=== PATIENT | male | born 1940 | race African-American/Black ===

== ENCOUNTER 2016-10-18 16:48 | Inpatient (IN) | payer MEDICARE, OTHER ==
[2016-10-18] VITALS (10 sets, daily range): BP systolic 170–236; BP diastolic 96–116; PULSE 68–90; RESP 16–24; TEMP 98.1–98.4; O2SAT 94–100
[~2016-10-18] VITALS: Ht 185.4 cm; Wt 85.2 kg
[2016-10-18] MEDS ORDERED: SODIUM CHLOR 0.9% 1000 ML INJ 1,000 ML IV ONE (16:53)
[2016-10-18] MEDS ORDERED: ASPIRIN 81 MG CHEW TAB PO STA (16:53)
[2016-10-18] MEDS ORDERED: NITROGLYCERIN 0.4 MG SL 25 TABS/BTL SL STA (16:53)
[2016-10-18] MEDS ORDERED: HEPARIN SODIUM - IV 10,000 UNITS/10 ML VIAL IV STA (16:53)
[2016-10-18] MEDS ORDERED: IOHEXOL 350 MG/ML 100 ML BTL (for Cath Lab) OTHER ONE (17:00)
[2016-10-18] MEDS ORDERED: SODIUM CHLORIDE 0.9% FLUSH 5 ML FLUSH IVF PRN (17:00)
[2016-10-18] MEDS ORDERED: NITROGLYCERIN-DEXTROSE INJ 250 ML IV SCH (17:00)
--- NOTE | 2016-10-18 17:08 | PD ---
HPI Chief Complaint: Chest Pain Time Seen by Provider: 16:53 Travel History International Travel<30 days: No Contact w/Intl Traveler<30days: No Traveled to known affect area: No History of Present Illness HPI Patient is a pleasant 76-year-old male who presents the emergency department with complaint of chest pain. Patient states that he was trying to get his continuing education credit than before the end of the calendar year. He is on the computer and stressing. Approximately 3 PM he developed substernal chest pain. Describes this as though somebody is squeezing his heart. 4 out of 10 at this time. It radiates slightly into the shoulders bilaterally but nothing into the neck or back. No chest pain, palpitations. He took aspirin prior to EMS arrival. Was given nitroglycerin 1 per EMS without improvement. EMS noted significant ST depression throughout the precordial leads. Patient hemodynamically stable en route. He denies a history of hypertension, known coronary artery disease and does not have an established investment fund manager. Of note patient's states that his 3 years ago and if this is "my day to than let me go". Patient is consistent that he wants to be a DNR. No defibrillations, CPR, intubation. PFSH Past Medical History Medical History: Denies Significant Hx Hypertension: Yes Influenza Vaccination: No Past Surgical History Appendectomy: Yes Social History Alcohol Use: Yes (OCCAS.) Tobacco Use: No Substance Use: No Allergies-Medications (Allergen,Severity, Reaction): Coded Allergies: No Known Allergies (Unverified , 10/18/16) Reported Meds & Prescriptions Reported Meds & Active Scripts Active No Active Prescriptions or Reported Medications Review of Systems ROS Limitations: Clinical Condition Except as stated in HPI: all other systems reviewed are Neg Physical Exam Exam Limitations: Clinical Condition Narrative GENERAL: Well-appearing male in no acute distress SKIN: Warm and dry. HEAD: Normocephalic. EYES: No scleral icterus. No injection or drainage. ENT: Mucous membranes pink and moist. NECK: Supple CARDIOVASCULAR: Regular rate and rhythm. No murmur appreciated. No reproducible tenderness to palpation of the chest wall. RESPIRATORY: No accessory muscle use. Clear to auscultation. Breath sounds equal bilaterally. GASTROINTESTINAL: Abdomen soft, non-tender, nondistended. MUSCULOSKELETAL: No edema. NEUROLOGICAL: Awake and alert. Normal speech. PSYCHIATRIC: Appropriate mood and affect; insight and judgment normal. Data Data Last Documented VS Vital Signs Date Time Temp Pulse Resp B/P Pulse Ox O2 Delivery O2 Flow Rate FiO2 10/18/16 17:00 100 Room Air 10/18/16 17:00 2 10/18/16 16:50 72 24 236/116 Orders Troponin I (10/18/16 16:53) Ckmb (Isoenzyme) Profile (10/18/16 16:53) Complete Blood Count With Diff (10/18/16 16:53) I-Stat Profile (10/18/16 16:53) I-Stat Creatinine (10/18/16 16:53) Calcium (10/18/16 16:53) Magnesium (Mg) (10/18/16 16:53) Prothrombin Time / Inr (Pt) (10/18/16 16:53) Act Partial Throm Time (Ptt) (10/18/16 16:53) B-Type Natriuretic Peptide (10/18/16 16:53) Chest, Single Ap (10/18/16 16:53) Electrocardiogram (10/18/16 16:53) Oxygen Administration (10/18/16 16:53) Iv Access Insert/Monitor (10/18/16 16:53) Oximetry (10/18/16 16:53) Sodium Chlor 0.9% 1000 Ml Inj (Ns 1000 M (10/18/16 16:53) Sodium Chloride 0.9% Flush (Ns Flush) (10/18/16 17:00) Aspirin Chew (Aspirin Chew) (10/18/16 16:53) Nitroglycerin Sl (Nitrostat Sl) (10/18/16 16:53) Nitroglycerin-Dextrose Inj (Nitroglyceri (10/18/16 17:00) Heparin Inj (Heparin Inj) (10/18/16 16:53) Electrocardiogram (10/18/16 ) Admit Order (Ed Use Only) (10/18/16 16:59) Code Status (10/18/16 16:59) MDM Medical Decision Making Medical Screen Exam Complete: Yes Emergency Medical Condition: Yes Medical Record Reviewed: Yes Differential Diagnosis 76-year-old male here with approximately 2 hours of squeezing pain to the chest. Differential includes ACS, atypical chest pain, GERD, musculoskeletal and less likely PE or dissection. Narrative Course Patient placed on monitor, IV established and blood obtained. A twelve-lead EKG shows sinus rhythm. Patient has ST elevation in aVR with reciprocal ST depression in V1, V2, V3, and slightly in V4. Highly suspicious for posterior STEMI. STEMI alert was activated. Portable chest x-ray obtained that by my read is unremarkable. Patient given heparin bolus, nitroglycerin, nitroglycerin drip. I spoke with Dr. espinoza of cardiology who accepted patient to the [facility]. At this time patient is ready for [facility]. Laboratory evaluation remains pending at the time of this dictation. Critical Care Narrative Aggregate critical care time was 35 minutes. Time to perform other separately billable procedures was not included in the critical care time. My time did not include minutes spent treating any other patients simultaneously or on activities that did not directly contribute to the patient's treatment. The services I provided to this patient were to treat and/or prevent clinically significant deterioration that could result in: cardio pulmonary decompensation , , disability I provided critical care services requiring my management, as noted below: Chart data review, documentation time, medication orders and management, vital sign assessments/reviewing monitor data, ordering and reviewing lab tests, ordering and interpreting/reviewing x-rays and diagnostic studies, care of the patient and discussion of the patient with the admitting physicians. Diagnosis Primary Impression: ST elevation DE (STEMI) Qualified Code: I21.3 - ST elevation myocardial infarction (STEMI), unspecified artery Additional Impression: Chest pain Qualified Code: R07.2 - Precordial pain Admitting Information Admitting Physician Requests: Admit Scripts No Active Prescriptions or Reported Meds Viktoriya Edge MD Oct 18, 2016 17:08
--- NOTE | 2016-10-18 17:12 | RADRPT ---
EXAM DATE/TIME: 10/18/2016 17:01 [facility] COMPARISON: No previous studies available for comparison. INDICATIONS : Stemi alert MEDICAL HISTORY : None. SURGICAL HISTORY : None. ENCOUNTER: Initial ACUITY: 1 day PAIN SCORE: 10/10 LOCATION: Left chest FINDINGS: There is mild left base atelectasis. Right lung appears clear. No pleural effusion or pneumothorax se en. Heart size within normal limits. CONCLUSION: Mild left base atelectasis. No other acute cardiopulmonary disease demonstrated. Candelario Dixon MD on October 18, 2016 at 17:10 Board Certified Radiologist. This report was verified electronically.
[2016-10-18 17:15] LABS: I-STAT POTASSIUM 8.4 MMOL/L (3.5-4.9); I-STAT SODIUM 136 MMOL/L (138-146)
[2016-10-18 17:17] LABS: AUTOMATED NEUTROPHIL # 6.2 TH/MM3 (1.8-7.7); BASOPHIL % 0.4 % (0.0-2.0); EOSINOPHIL # 0.1 TH/MM3 (0-0.4); EOSINOPHIL % 0.8 % (0.0-4.0); HEMATOCRIT 45.1 % (39.0-51.0); HEMO FLAGS DIFF FINAL; LYMPH % 21.7 % (9.0-44.0); LYMPHOCYTE # 1.9 TH/MM3 (1.0-4.8); MEAN CELL VOLUME 84.5 FL (80.0-100.0); MEAN CORPUSCULAR HEMOGLOBIN 27.2 PG (27.0-34.0); MEAN CORPUSCULAR HGB CONC 32.2 % (32.0-36.0); MONO % 6.7 % (0.0-8.0); NEUT % 70.4 % (16.0-70.0); PLATELET COUNT 216 TH/MM3 (150-450); RED BLOOD COUNT 5.33 MIL/MM3 (4.50-5.90); RED CELL DISTRIBUTION WIDTH 14.9 % (11.6-17.2); WHITE BLOOD COUNT 8.8 TH/MM3 (4.0-11.0)
[2016-10-18] MEDS ORDERED: MIDAZOLAM HCL 2 MG/2 ML VIAL ONE (17:20)
[2016-10-18] MEDS ORDERED: HEPARIN SODIUM - IV 10,000 UNITS/10 ML VIAL ONE (17:26)
[2016-10-18 17:27] LABS: APTT (PATIENT) 24.2 SEC (24.3-30.1); PROTHROMBIN TIME - PATIENT 10.7 SEC (9.8-11.6)
[2016-10-18 17:39] LABS: MAGNESIUM 2.1 MG/DL (1.5-2.5)
[2016-10-18 17:40] LABS: CREATINE KINASE 224 U/L (39-308)
[2016-10-18 17:56] LABS: CKMB 10.3 NG/ML (0.5-3.6)
[2016-10-18] MEDS ORDERED: cloNIDine HCL 0.1 MG TAB PO PRN (18:00)
[2016-10-18] MEDS ORDERED: LABETALOL HCL 100 MG/20 ML VIAL IVP PRN (18:00)
[2016-10-18] MEDS ORDERED: hydrALAZINE HCL 20 MG/ML VIAL IV PUSH PRN (18:00)
[2016-10-18] MEDS ORDERED: HEPARIN-D5W INJ 250 ML IV SCH (18:00)
[2016-10-18] MEDS ORDERED: ENALAPRILAT 1.25 MG/ML VIAL IV PRN (18:00)
[2016-10-18] MEDS ORDERED: BACITRACIN OINT 0.9 GM PKT TOP ONE (18:00)
[2016-10-18] MEDS ORDERED: oxyCODONE/ACETAMINOPHEN 5 MG/325 MG TAB PO PRN ×2 (18:00)
[2016-10-18] MEDS ORDERED: NITROPRUSSIDE INJ 50 MG in DEXTROSE 5% IN WATER INJ 248 ML IV SCH ×2 (18:00)
[2016-10-18] MEDS ORDERED: MISC INFORMATION XX ONE (18:00)
[2016-10-18] MEDS ORDERED: ONDANSETRON HCL 4 MG/2 ML VIAL IVP PRN (18:00)
--- NOTE | 2016-10-18 18:32 | MB ---
cc: RADHA TUBBS DATE OF CONSULTATION 10/18/[address]-elevation myocardial infarction. HISTORY OF PRESENT ILLNESS A 76-year-old gentleman with history of hypertension and borderline diabetes who presented to the emergency department with acute onset of substernal chest pain. He said today he was at his computer when he started developing substernal tightness. It radiated towards both shoulders and his back, came into the emergency department where he has some lateral ST elevation with some posterior and reciprocal changes, ST depression anteriorly. ST-elevation myocardial infarction protocol was initiated. PAST MEDICAL HISTORY Hypertension, borderline diabetes. SOCIAL HISTORY Occasional alcohol use. Denies any tobacco or drug use. ALLERGIES No known drug allergies. MEDICATIONS No active medications. REVIEW OF SYSTEMS 12-point review of system was performed and negative unless otherwise noted in the history of present illness. PHYSICAL EXAMINATION VITAL SIGNS: Pulse 72, respiratory rate 24, blood pressure 236/116 at presentation. GENERAL: Alert and oriented x3, mild distress. HEENT: Exam shows pupils are reactive to light and accommodation. Extraocular movements are intact. No elevation in jugular venous distension. No thyromegaly or lymphadenopathy. No carotid bruits. LUNGS: Clear to auscultation bilaterally. CARDIOVASCULAR: Regular rate and rhythm without murmurs, rubs or gallops. ABDOMEN: Nontender, nondistended. Good bowel sounds. No hepatosplenomegaly. EXTREMITIES: No clubbing, cyanosis or edema. Good peripheral pulses. NEURO: Cranial nerves intact. Motor, sensory grossly intact. LABORATORY DATA WBC 8.8, hemoglobin 14.5, platelet count 216, sodium 136, potassium 8.4 but I think it is hemolyzed. Troponin 0.98, BUN is 18, creatinine is 1.1. ASSESSMENT 1. ST-elevation myocardial infarction. 2. Hypertension. 3. Borderline diabetes. PLAN Given the patient's substernal chest pain and electrocardiographic changes he will be brought emergently to the cardiac catheterization lab for attempted revascularization. The risks, benefits and alternatives discussed with the patient. He understood and consented to proceed. MD RENU Rivera/ABDIRAHMAN /5:59 PM /6:22 PM
--- NOTE | 2016-10-18 18:42 | MA ---
cc: RADHA TUBBS DATE 10/18/[address]-elevation myocardial infarction. PROCEDURE PERFORMED 1. Fluoroscopy with interpretation. 2. Left heart catheterization. 3. Left ventriculography. 4. Coronary angiography. METHOD The risks, benefits and alternatives discussed with the patient. The patient understood and consented to the procedure. PROCEDURE IN DETAIL The patient was brought to the cardiac catheterization lab, placed on the catheterization table. The right wrist was prepped and draped in sterile fashion. Right wrist was anesthetized with 2% lidocaine. Right radial artery is cannulated and a 6-Belgian 7 cm sheath was placed without difficulty. 200 micrograms of IA nitroglycerin was administered. CORONARY ANGIOGRAPHY Left coronary circulation was selectively engaged with a 6-Belgian AL-3 guide catheter. Right coronary circulation selectively engaged with 6-Belgian JR-5 catheter. Angiography findings as follows: 1. Left main coronary is angiographically normal. 2. Left anterior descending coronary has mild disease through its entire prox, course in the distal segment about 75% stenosis. There is a high diagonal branch which is a moderate size caliber vessel but otherwise fills very late and is subtotally occluded 99%. 3. Left circumflex gives rise to a large ramus intermedius branch and subbranch has a 95% stenosis. The circumflex is a dominant vessel giving rise to a left-sided posterior descending branch. There is an obtuse marginal branch which leads to the posterior descending branch and through the old mid segment of the circumflex there is a 90% stenosis. The right coronary is a smaller caliber size, gives the posterolateral branch 90% stenosis. LEFT HEART CATHETERIZATION 6-Belgian angled pigtail catheter was advanced across the valve without difficulty. Intracardiac pressure measured 160/15 mmHg. LEFT VENTRICULOGRAPHY Left ventriculography was performed right anterior oblique using a 30 cc contrast injection, good opacification. The left ventricular ejection fraction visually estimated at 65% without regional wall motion abnormalities. CONCLUSION 1. Multivessel coronary artery disease. The culprit lesion appears to be a diagonal branch but it is subtotally occluded and not easily approachable percutaneously. 2. Normal left ventricular systolic function. PLAN Given the multivessel disease we will consult cardiothoracic surgery. His symptoms are improving on the nitroglycerin, will continue with heparin. His diagonal branch is likely the culprit which is not easily approachable percutaneously. MD MART Rivera /6:06 PM /6:31 PM [facility] DIVISIONBranden
[2016-10-18 19:08] LABS: MEAN CELL VOLUME 84.4 FL (80.0-100.0); MEAN CORPUSCULAR HEMOGLOBIN 27.9 PG (27.0-34.0); MEAN CORPUSCULAR HGB CONC 33.1 % (32.0-36.0); PLATELET COUNT 213 TH/MM3 (150-450); RED CELL DISTRIBUTION WIDTH 14.9 % (11.6-17.2); REVIEW FLAG FINAL; WHITE BLOOD COUNT 10.2 TH/MM3 (4.0-11.0)
[2016-10-18 20:09] LABS: APTT (PATIENT) 110.8 SEC (24.3-30.1)
[2016-10-18 23:18] LABS: APTT (PATIENT) 31.6 SEC (24.3-30.1)
[2016-10-19] VITALS (25 sets, daily range): BP systolic 121–172; BP diastolic 68–101; PULSE 56–93; RESP 16; TEMP 98.1–98.6; O2SAT 94–99
[2016-10-19 07:58] LABS: AUTOMATED NEUTROPHIL # 6.3 TH/MM3 (1.8-7.7); BASOPHIL % 0.3 % (0.0-2.0); HEMATOCRIT 41.3 % (39.0-51.0); HEMO FLAGS DIFF FINAL; LYMPH % 12.5 % (9.0-44.0); MEAN CELL VOLUME 82.9 FL (80.0-100.0); MEAN CORPUSCULAR HEMOGLOBIN 27.5 PG (27.0-34.0); MEAN CORPUSCULAR HGB CONC 33.1 % (32.0-36.0); NEUT % 82.2 % (16.0-70.0); PLATELET COUNT 237 TH/MM3 (150-450); RED BLOOD COUNT 4.98 MIL/MM3 (4.50-5.90); WHITE BLOOD COUNT 7.6 TH/MM3 (4.0-11.0)
[2016-10-19 08:05] LABS: APTT (PATIENT) 25.2 SEC (24.3-30.1)
[2016-10-19 08:47] LABS: BICARBONATE 24.9 MEQ/L (21.0-32.0); POTASSIUM 3.8 MEQ/L (3.5-5.1)
[2016-10-19] MEDS ORDERED: LISINOPRIL 10 MG TAB PO SCH (10:30)
--- NOTE | 2016-10-19 10:33 | PD.CARD.PN ---
Subjective Subjective Remarks symptoms improved no complaints Objective Medications Active Medications Aspirin (Ecotrin Ec) 81 mg DAILY PO; Start 10/19/16 at 10:30 Atorvastatin Calcium (Lipitor) 40 mg HS PO; Start 10/19/16 at 21:00 Bacitracin 0.9 gm 0.9 gm ONCE ONCE TOP Last administered on 10/18/16at 07:00; Admin Dose 0.9 GM; Start 10/18/16 at 18:00; Stop 10/18/16 at 18:01; Status DC Clonidine (Catapres) 0.2 mg Q6H PRN PO; Start 10/18/16 at 18:00 Enalaprilat (Vasotec Inj) 1.25 mg UNSCH PRN IV; Start 10/18/16 at 18:00; Stop 10/19/16 at 17:59 Fentanyl Citrate (fentaNYL INJ) 100 mcg STK-MED ONCE .ROUTE Last administered on 10/18/16at 17:25; Admin Dose 100 MCG; Start 10/18/16 at 17:20; Stop at 17:21; Status DC Heparin Sodium (Porcine) (Heparin Inj) 10,000 units STK-MED ONCE .ROUTE Last administered on 10/18/16at 17:27; Admin Dose 5,000 UNITS; Start 10/18/16 at 17: 26; Stop 10/18/16 at 17:27; Status DC Heparin Sodium/ Dextrose (Heparin-D5W Inj) 250 ml @ 0 mls/hr TITRATE IV; Start 10/18/16 at 18:00 Hydralazine HCl (Apresoline Inj) 10 mg Q30M PRN IV PUSH Last administered on at 20:24; Admin Dose 10 MG; Start 10/18/16 at 18:00 IV Flush 2 ml 2 ml UNSCH PRN IVF; Start 10/18/16 at 17:00 Labetalol HCl 2.5 mg 2.5 mg Q10M PRN IVP; Start 10/18/16 at 18:00; Stop at 17:59 Lisinopril (Prinivil) 10 mg DAILY PO; Start 10/19/16 at 10:30 Metoprolol Tartrate (Lopressor) 25 mg Q12HR PO; Start 10/19/16 at 10:30 Midazolam HCl (Versed Inj) 2 mg STK-MED ONCE .ROUTE Last administered on at 17:24; Admin Dose 2 MG; Start 10/18/16 at 17:20; Stop 10/18/16 at 17:21; Status DC Miscellaneous Information 1 ONCE ONCE XX; Start 10/18/16 at 18:00; Stop 10/18 at 18:01; Status UNV Nitroglycerin/ Dextrose (Nitroglycerin-Dextrose Inj) 250 ml @ 0 mls/hr TITRATE IV Last administered on 10/18/16at 17:10; Admin Dose 0 MLS/HR; Start 10/18/16 at 17:00 Ondansetron HCl (Zofran Inj) 4 mg Q6H PRN IVP; Start 10/18/16 at 18:00 Oxycodone/ Acetaminophen (Percocet 5-325 Mg) 1 tab Q4H PRN PO; Start at 18:00 Oxycodone/ Acetaminophen (Percocet 5-325 Mg) 2 tab Q4H PRN PO; Start at 18:00 Sodium Nitroprusside/ Dextrose (Nipride Inj/D5W Inj) 250 ml @ 0 mls/hr TITRATE IV; Start 10/18/16 at 18:00 Sodium Chloride (NS 1000 ml Inj) 1,000 ml @ 0 mls/hr Q0M ONCE IV Last administered on 10/18/16at 17:10; Admin Dose 0 MLS/HR; Start 10/18/16 at 16:53 ; Stop 10/18/16 at 16:56; Status DC Vital Signs / I&O Vital Signs Date Time Temp Pulse Resp B/P Pulse Ox O2 Delivery O2 Flow Rate FiO2 10/19/16 10:00 83 10/19/16 09:00 85 10/19/16 08:00 83 10/19/16 07:00 80 10/19/16 07:00 98.3 86 16 121/76 99 10/19/16 06:00 91 10/19/16 05:14 98.1 68 16 172/101 94 10/19/16 05:00 90 10/19/16 04:00 88 10/19/16 03:00 91 10/19/16 02:00 91 10/19/16 01:00 88 10/19/16 00:00 93 10/18/16 23:00 88 10/18/16 23:00 98.1 90 16 170/96 97 10/18/16 22:00 85 10/18/16 21:00 68 10/18/16 20:43 98.1 68 16 172/101 94 10/18/16 20:00 73 10/18/16 19:00 73 10/18/16 18:53 70 10/18/16 18:15 98.4 74 18 180/99 94 10/18/16 17:00 100 Room Air 10/18/16 17:00 100 Nasal Cannula 2 10/18/16 16:50 72 24 236/116 100 I/O 10/18/16 10/18/16 10/18/16 10/19/16 10/19/16 10/19/16 07:00 15:00 23:00 07:00 15:00 23:00 Intake Total 360 ml Output Total 500 ml Balance -140 ml Intake Oral 360 ml Output Urine Total 350 ml Emesis 150 ml Physical Exam GENERAL: SKIN: Warm and dry. HEAD: Normocephalic. EYES: No scleral icterus. No injection or drainage. NECK: Supple, trachea midline. No JVD or lymphadenopathy. CARDIOVASCULAR: Regular rate and rhythm without murmurs, gallops, or rubs. RESPIRATORY: Breath sounds equal bilaterally. No accessory muscle use. GASTROINTESTINAL: Abdomen soft, non-tender, nondistended. MUSCULOSKELETAL: No cyanosis, or edema. BACK: Nontender without obvious deformity. No CVA tenderness. Laboratory Laboratory Tests Test 10/18/16 10/18/16 10/18/16 10/18/16 16:25 17:05 19:00 22:39 White Blood Count 8.8 TH/MM3 10.2 TH/MM3 Red Blood Count 5.33 MIL/MM3 5.10 MIL/MM3 Hemoglobin 14.5 GM/DL 14.2 GM/DL Bedside Hemoglobin 15.3 G/DL Hematocrit 45.1 % 43.0 % Bedside Hematocrit 45.0 % Mean Corpuscular Volume 84.5 FL 84.4 FL Mean Corpuscular Hemoglobin 27.2 PG 27.9 PG Mean Corpuscular Hemoglobin 32.2 % 33.1 % Concent Red Cell Distribution Width 14.9 % 14.9 % Platelet Count 216 TH/MM3 213 TH/MM3 Mean Platelet Volume 7.1 FL 6.9 FL Neutrophils (%) (Auto) 70.4 % Lymphocytes (%) (Auto) 21.7 % Monocytes (%) (Auto) 6.7 % Eosinophils (%) (Auto) 0.8 % Basophils (%) (Auto) 0.4 % Neutrophils # (Auto) 6.2 TH/MM3 Lymphocytes # (Auto) 1.9 TH/MM3 Monocytes # (Auto) 0.6 TH/MM3 Eosinophils # (Auto) 0.1 TH/MM3 Basophils # (Auto) 0.0 TH/MM3 CBC Comment DIFF FINAL Differential Comment Prothrombin Time 10.7 SEC Prothromb Time International 1.0 RATIO Ratio Activated Partial 24.2 SEC 110.8 SEC 31.6 SEC Thromboplast Time Bedside Sodium 136 MMOL/L Bedside Potassium 8.4 MMOL/L Bedside Chloride 107 MMOL/L Bedside Blood Urea Nitrogen 18 MG/DL Bedside Creatinine 1.1 MG/DL Bedside Glucose 104 MG/DL Calcium Level 9.4 MG/DL Magnesium Level 2.1 MG/DL Total Creatine Kinase 224 U/L Creatine Kinase MB 10.3 NG/ML Troponin I 0.98 NG/ML B-Type Natriuretic Peptide 14 PG/ML Test 10/19/16 06:00 White Blood Count 7.6 TH/MM3 Red Blood Count 4.98 MIL/MM3 Hemoglobin 13.7 GM/DL Hematocrit 41.3 % Mean Corpuscular Volume 82.9 FL Mean Corpuscular Hemoglobin 27.5 PG Mean Corpuscular Hemoglobin 33.1 % Concent Red Cell Distribution Width 15.0 % Platelet Count 237 TH/MM3 Mean Platelet Volume 7.4 FL Neutrophils (%) (Auto) 82.2 % Lymphocytes (%) (Auto) 12.5 % Monocytes (%) (Auto) 5.0 % Eosinophils (%) (Auto) 0.0 % Basophils (%) (Auto) 0.3 % Neutrophils # (Auto) 6.3 TH/MM3 Lymphocytes # (Auto) 1.0 TH/MM3 Monocytes # (Auto) 0.4 TH/MM3 Eosinophils # (Auto) 0.0 TH/MM3 Basophils # (Auto) 0.0 TH/MM3 CBC Comment DIFF FINAL Differential Comment Activated Partial 25.2 SEC Thromboplast Time Sodium Level 140 MEQ/L Potassium Level 3.8 MEQ/L Chloride Level 103 MEQ/L Carbon Dioxide Level 24.9 MEQ/L Anion Gap 12 MEQ/L Blood Urea Nitrogen 11 MG/DL Creatinine 1.06 MG/DL Estimat Glomerular Filtration 83 ML/MIN Rate Random Glucose 140 MG/DL Calcium Level 9.4 MG/DL Imaging Last Impressions Chest X-Ray 10/18/16 2598 Signed Impressions: Service Date/Time: Tuesday, October 18, 2016 17:01 - CONCLUSION: Mild left base atelectasis. No other acute cardiopulmonary disease demonstrated. Candelario Dixon MD Assessment and Plan Assessment and Plan STEMI - multivessel CAD. Diagonal branch is culprit lesion. medical therapy. currently stable. refusing heparin. 2d echo pending CT surg consult pending Jaime Aggarwal MD Oct 19, 2016 10:33
[2016-10-19] MEDS: ASPIRIN EC 81 MG TABEC PO SCH (10:45)
[2016-10-19] MEDS: METOPROLOL TARTRATE 25 MG TAB PO SCH ×2 (10:45→21:00)
--- NOTE | 2016-10-19 11:58 | PD.CONS ---
History of Present Illness Service CT Surgery Consult Requested By Dr. Aggarwal Reason for Consult STEMI, multivessel CAD Primary Care Physician Diagnoses: (1) ST elevation SD (STEMI) (2) Chest pain (3) CAD (coronary artery disease) History of Present Illness 76 y/o male presented to the ED yesterday c/o substernal chest tightness radiating to both arms and back. He ruled-in for STEMI and was emergently taken to the boat laborer where he was found to have severe 3 vessel CAD. He denies prior history and is being considered for CABG. Review of Systems Constitutional: DENIES: Diaphoretic episodes, Fatigue, Fever, Weight gain, Weight loss, Chills, Dizziness, Change in appetite, Night Sweats Endocrine: DENIES: Heat/cold intolerance, Polydipsia, Polyuria, Polyphagia Eyes: DENIES: Blurred vision, Diplopia, Eye inflammation, Eye pain, Vision loss , Photosensitivity, Double Vision Ears, nose, mouth, throat: DENIES: Tinnitus, Hearing loss, Vertigo, Nasal discharge, Oral lesions, Throat pain, Hoarseness, Ear Pain, Running Nose, Epistaxis, Sinus Pain, Toothache, Odynophagia Respiratory: DENIES: Apneas, Cough, Snoring, Wheezing, Hemoptysis, Sputum production, Shortness of breath Cardiovascular: COMPLAINS OF: Chest pain, Dyspnea on Exertion, DENIES: Palpitations, Syncope, PND, Lower Extremity Edema, Orthopnea, Claudication Gastrointestinal: COMPLAINS OF: Nausea, DENIES: Abdominal pain, Black stools, Bloody stools, Constipation, Diarrhea, Vomiting, Difficulty Swallowing, Anorexia Genitourinary: DENIES: Sexual dysfunction, Urinary frequency, Urinary incontinence, Urgency, Hematuria, Dysuria, Nocturia, Penile Discharge, Testicular Pain, Testicular Swelling Musculoskeletal: DENIES: Joint pain, Muscle aches, Stiffness, Joint Swelling, Back pain, Neck pain Integumentary: DENIES: Abnormal pigmentation, Nail changes, Pruritus, Rash Hematologic/lymphatic: DENIES: Bruising, Lymphadenopathy Immunologic/allergic: DENIES: Eczema, Urticaria Neurologic: DENIES: Abnormal gait, Headache, Localized weakness, Paresthesias, Seizures, Speech Problems, Tremor, Poor Balance Psychiatric: DENIES: Anxiety, Confusion, Mood changes, Depression, Hallucinations, Agitation, Suicidal Ideation, Homicidal Ideation, Delusions Past Family Social History Allergies: Coded Allergies: No Known Allergies (Unverified , 10/18/16) Past Medical History HTN Type 2 DM Reported Medications none Active Ordered Medications Current Medications Medications (Trade) Dose Ordered Sig/Oniel Route Start Time Stop Time Status Last Admin IV Flush 2 ml 2 ml UNSCH PRN IVF 10/18/16 17:00 (Nitroglycerin-Dextrose Inj) 250 ml @ 0 mls/hr TITRATE IV 10/18/16 17:00 10/18/16 17:10 (Zofran Inj) 4 mg Q6H PRN IVP 10/18/16 18:00 (Percocet 5-325 Mg) 1 tab Q4H PRN PO 10/18/16 18:00 Oxycodone/ Acetaminophen 2 tab 2 tab Q4H PRN PO 10/18/16 18:00 (Heparin-D5W Inj) 250 ml @ 0 mls/hr TITRATE IV 10/18/16 18:00 (Vasotec Inj) 1.25 mg UNSCH PRN IV 10/18/16 18:00 10/19/16 17:59 Labetalol HCl 2.5 mg 2.5 mg Q10M PRN IVP 10/18/16 18:00 10/19/16 17:59 (Nipride Inj/D5W Inj) 250 ml @ 0 mls/hr TITRATE IV 10/18/16 18:00 (Catapres) 0.2 mg Q6H PRN PO 10/18/16 18:00 (Apresoline Inj) 10 mg Q30M PRN IV PUSH 10/18/16 18:00 10/18/16 20:24 (Lopressor) 25 mg Q12HR PO 10/19/16 10:30 10/19/16 10:45 (Prinivil) 10 mg DAILY PO 10/19/16 10:30 10/19/16 10:45 (Ecotrin Ec) 81 mg DAILY PO 10/19/16 10:30 10/19/16 10:45 (Lipitor) 40 mg HS PO 10/19/16 21:00 (Imdur) 30 mg DAILY@07 PO 10/20/16 07:00 Social History Denies tobacco, ETOH [employer] - passed 3 yrs ago from sarcoma Physical Exam Vital Signs Vital Signs Date Time Temp Pulse Resp B/P Pulse Ox O2 Delivery O2 Flow Rate FiO2 10/19/16 11:00 98.6 83 16 156/83 96 10/19/16 11:00 85 10/19/16 10:00 83 10/19/16 09:00 85 10/19/16 08:00 83 10/19/16 07:00 80 10/19/16 07:00 98.3 86 16 121/76 99 10/19/16 06:00 91 10/19/16 05:14 98.1 68 16 172/101 94 10/19/16 05:00 90 10/19/16 04:00 88 10/19/16 03:00 91 10/19/16 02:00 91 10/19/16 01:00 88 10/19/16 00:00 93 10/18/16 23:00 88 10/18/16 23:00 98.1 90 16 170/96 97 10/18/16 22:00 85 10/18/16 21:00 68 10/18/16 20:43 98.1 68 16 172/101 94 10/18/16 20:00 73 10/18/16 19:00 73 10/18/16 18:53 70 10/18/16 18:15 98.4 74 18 180/99 94 10/18/16 17:00 100 Room Air 10/18/16 17:00 100 Nasal Cannula 2 10/18/16 16:50 72 24 236/116 100 Physical Exam GENERAL: This is a well-nourished, well-developed patient, in no apparent distress. SKIN: No rashes, ecchymoses or lesions. Cool and dry. HEAD: Atraumatic. Normocephalic. No temporal or scalp tenderness. EYES: Pupils equal round and reactive. Extraocular motions intact. No scleral icterus. No injection or drainage. ENT: Nose without bleeding, purulent drainage or septal hematoma. Throat without erythema, tonsillar hypertrophy or exudate. Uvula midline. Airway patent. NECK: Trachea midline. No JVD or lymphadenopathy. Supple, nontender, no meningeal signs. CARDIOVASCULAR: Regular rate and rhythm without murmurs, gallops, or rubs. RESPIRATORY: Clear to auscultation. Breath sounds equal bilaterally. No wheezes , rales, or rhonchi. GASTROINTESTINAL: Abdomen soft, non-tender, nondistended. No hepato-splenomegaly , or palpable masses. No guarding. MUSCULOSKELETAL: Extremities without clubbing, cyanosis, or edema. No joint tenderness, effusion, or edema noted. No calf tenderness. Negative Homans sign bilaterally. NEUROLOGICAL: Awake and alert. Cranial nerves II through XII intact. Motor and sensory grossly within normal limits. Five out of 5 muscle strength in all muscle groups. Normal speech. Laboratory Laboratory Tests Test 10/18/16 10/18/16 10/18/16 10/18/16 16:25 17:05 19:00 22:39 White Blood Count 8.8 10.2 Red Blood Count 5.33 5.10 Hemoglobin 14.5 14.2 Bedside Hemoglobin 15.3 Hematocrit 45.1 43.0 Bedside Hematocrit 45.0 Mean Corpuscular Volume 84.5 84.4 Mean Corpuscular Hemoglobin 27.2 27.9 Mean Corpuscular Hemoglobin 32.2 33.1 Concent Red Cell Distribution Width 14.9 14.9 Platelet Count 216 213 Mean Platelet Volume 7.1 6.9 Neutrophils (%) (Auto) 70.4 Lymphocytes (%) (Auto) 21.7 Monocytes (%) (Auto) 6.7 Eosinophils (%) (Auto) 0.8 Basophils (%) (Auto) 0.4 Neutrophils # (Auto) 6.2 Lymphocytes # (Auto) 1.9 Monocytes # (Auto) 0.6 Eosinophils # (Auto) 0.1 Basophils # (Auto) 0.0 CBC Comment DIFF FINAL Differential Comment Prothrombin Time 10.7 Prothromb Time International 1.0 Ratio Activated Partial 24.2 110.8 31.6 Thromboplast Time Bedside Sodium 136 Bedside Potassium 8.4 Bedside Chloride 107 Bedside Blood Urea Nitrogen 18 Bedside Creatinine 1.1 Bedside Glucose 104 Calcium Level 9.4 Magnesium Level 2.1 Total Creatine Kinase 224 Creatine Kinase MB 10.3 Troponin I 0.98 B-Type Natriuretic Peptide 14 Test 10/19/16 10/19/16 06:00 10:56 White Blood Count 7.6 Red Blood Count 4.98 Hemoglobin 13.7 Hematocrit 41.3 Mean Corpuscular Volume 82.9 Mean Corpuscular Hemoglobin 27.5 Mean Corpuscular Hemoglobin 33.1 Concent Red Cell Distribution Width 15.0 Platelet Count 237 Mean Platelet Volume 7.4 Neutrophils (%) (Auto) 82.2 Lymphocytes (%) (Auto) 12.5 Monocytes (%) (Auto) 5.0 Eosinophils (%) (Auto) 0.0 Basophils (%) (Auto) 0.3 Neutrophils # (Auto) 6.3 Lymphocytes # (Auto) 1.0 Monocytes # (Auto) 0.4 Eosinophils # (Auto) 0.0 Basophils # (Auto) 0.0 CBC Comment DIFF FINAL Differential Comment Activated Partial 25.2 Thromboplast Time Sodium Level 140 Potassium Level 3.8 Chloride Level 103 Carbon Dioxide Level 24.9 Anion Gap 12 Blood Urea Nitrogen 11 Creatinine 1.06 Estimat Glomerular Filtration 83 Rate Random Glucose 140 Calcium Level 9.4 Troponin I GREATER THAN 40.00 Result Diagram: 10/19/16 0600 10/19/16 0600 Imaging Last Impressions Chest X-Ray 10/18/16 8533 Signed Impressions: Service Date/Time: Thursday, October 18, 2016 17:01 - CONCLUSION: Mild left base atelectasis. No other acute cardiopulmonary disease demonstrated. Candelario Dixon MD Course Stable course so far. troponin > 40. Assessment and Plan Problem List: (1) Chest pain Status: Acute (2) ST elevation SD (STEMI) Status: Acute (3) CAD (coronary artery disease) Status: Acute Assessment and Plan 76 y/o male presents with STEMI and 3 vessel CAD. CABG recommended. Risks and benefits discussed as per STS profile below. RISK SCORES About the STS Risk Calculator Procedure: CAB Only Risk of Mortality: 0.886% Morbidity or Mortality: 9.647% Long Length of Stay: 3.371% Short Length of Stay: 52.089% Permanent Stroke: 1.033% Prolonged Ventilation: 5.22% DSW Infection: 0.308% Renal Failure: 2.717% Reoperation: 4.036% The patient lives in [place] and is concerned about follow-up and proximity to his home and support system. He mentioned potential transfer to [facility], but ultimately decided to stay here at [place] for surgery with follow-up closer to home. I will request preop studies and plan for CABG Thursday. Problem Qualifiers (1) ST elevation SD (STEMI): Qualified Code: I21.3 - ST elevation myocardial infarction (STEMI), unspecified artery (2) Chest pain: Qualified Code: R07.2 - Precordial pain (3) CAD (coronary artery disease): Qualified Code: I25.110 - Coronary artery disease involving kashia coronary artery of kashia heart with unstable angina pectoris Ayana Akbar MD Oct 19, 2016 11:58
[2016-10-19] MEDS ORDERED: SODIUM CHLORIDE 0.9% FLUSH 5 ML FLUSH IV FLUSH PRN (13:15)
--- NOTE | 2016-10-19 13:44 | EKG ---
Date Performed: 10/18/2016 Time Performed: 16:52:53 PTAGE: 76 years EKG: Sinus rhythm LEFT ANTERIOR FASCICULAR BLOCK LEFT VENTRICULAR HYPERTROPHY AND ST-T CHANGE THE SEPTAL ST SEGMENT DE PRESSION IS FAIRLY MARKED AND SUSPICIOUS FOR MYOCARDIAL ISCHEMIA. THERE IS NO PRIOR TRAICNG, CLINI SUKHDEV CORRELATION WILL BE IMPORTANT. ABNORMAL ECG NO PREVIOUS TRACING DOCTOR: Georgia Andres Interpretating Date/Time 10/19/2016 13:43:59
[2016-10-19 13:45] LABS: AUTOMATED NEUTROPHIL # 4.8 TH/MM3 (1.8-7.7); BASOPHIL % 0.6 % (0.0-2.0); EOSINOPHIL % 0.6 % (0.0-4.0); HEMATOCRIT 40.3 % (39.0-51.0); HEMO FLAGS DIFF FINAL; LYMPH % 21.9 % (9.0-44.0); LYMPHOCYTE # 1.6 TH/MM3 (1.0-4.8); MEAN CELL VOLUME 82.6 FL (80.0-100.0); MEAN CORPUSCULAR HEMOGLOBIN 27.3 PG (27.0-34.0); MEAN CORPUSCULAR HGB CONC 33.1 % (32.0-36.0); MONO % 11.2 % (0.0-8.0); NEUT % 65.7 % (16.0-70.0); PLATELET COUNT 225 TH/MM3 (150-450); RED BLOOD COUNT 4.88 MIL/MM3 (4.50-5.90); RED CELL DISTRIBUTION WIDTH 14.8 % (11.6-17.2); WHITE BLOOD COUNT 7.2 TH/MM3 (4.0-11.0)
--- NOTE | 2016-10-19 13:46 | EKG ---
Date Performed: 10/18/2016 Time Performed: 16:55:51 PTAGE: 76 years EKG: Sinus rhythm LEFT ANTERIOR FASCICULAR BLOCK LEFT VENTRICULAR HYPERTROPHY AND ST-T CHANGE PROBABLE ANTERIOR MYOCAR DIAL INFARCTION ABNORMAL ECG Compared to PREVIOUS TRACING , the septal ST depression has resolved. The patient now has minimal ST segment elevation in leads V3 through V6. An ST segment elevation infarction cannot be excluded and t he serial tracing is concerning for myocardial ischemia. Clinical correlation will be important. PREV IOUS TRACIN10/18/2016 16.52 DOCTOR: Georgia Andres Interpretating Date/Time 10/19/2016 13:45:22
[2016-10-19 13:49] LABS: APTT (PATIENT) 25.5 SEC (24.3-30.1); PROTHROMBIN TIME - PATIENT 11.1 SEC (9.8-11.6)
[2016-10-19 13:55] LABS: ANION GAP 9 MEQ/L (5-15); BICARBONATE 27.2 MEQ/L (21.0-32.0); BLOOD UREA NITROGEN 12 MG/DL (7-18); CHLORIDE 104 MEQ/L (98-107); GLOMERULAR FILTRATION RATE 76 ML/MIN (>89); POTASSIUM 3.6 MEQ/L (3.5-5.1); SODIUM (NA) 140 MEQ/L (136-145)
[2016-10-19] MEDS ORDERED: INSULIN REGULAR (IV INFUSION) 100 UNITS in SODIUM CHLORIDE 0.9% INJ 100 ML IV SCH (14:00)
[2016-10-19] MEDS ORDERED: METOPROLOL TARTRATE 25 MG TAB PO SCH (14:00)
[2016-10-19] MEDS ORDERED: PAPAVERINE INJ 60 MG, NITROGLYCERIN INJ 100 MCG, DILTIAZEM INJ 100 MG in SODIUM CHLORID... IRRIGATION SCH (14:00)
[2016-10-19] MEDS ORDERED: CEFAZOLIN INJ 500 MG in SODIUM CHLORIDE 0.9% IRR BTL 500 ML IRRIGATION SCH (14:00)
[2016-10-19] MEDS ORDERED: ceFAZolin 2 GM PREMIX 50 ML IV SCH (14:00)
[2016-10-19] MEDS ORDERED: CHLORHEXIDINE GLUCONATE 4% SOLN 120 ML BTL TOPICAL SCH (14:00)
[2016-10-19 16:48] LABS: BACTERIA, URINE RARE /hpf; BLOOD, URINE SMALL (NEG); COMMENT (UR) CULTURE INDICATED; CULTURE IF INDICATED CULTURE INDICATED; GLUCOSE,URINE NEG (NEG); KETONE, URINE NEG (NEG); MUCUS URINE FEW /lpf (OCC); NITRITE,URINE NEG (NEG); PH, URINE 5.5 (5.0-8.5); URINE COLOR YELLOW (YELLW/STRAW)
--- NOTE | 2016-10-19 17:33 | HHI.PR ---
Subjective Remarks Patient seen and evaluated in follow-up for ST TX. Denies chest pain at this time. Denies diabetes or hypertension pre-existing. Patient seen with son in room. No new complaints. Chart reviewed in plan of care discussed with patient Objective Vitals Vital Signs Date Time Temp Pulse Resp B/P Pulse Ox O2 Delivery O2 Flow Rate FiO2 10/19/16 17:00 62 10/19/16 16:00 60 10/19/16 15:00 70 10/19/16 15:00 98.6 65 16 126/68 97 10/19/16 14:00 72 10/19/16 13:00 69 10/19/16 12:00 84 10/19/16 11:00 98.6 83 16 156/83 96 10/19/16 11:00 85 10/19/16 10:00 83 10/19/16 09:00 85 10/19/16 08:00 83 10/19/16 07:00 80 10/19/16 07:00 98.3 86 16 121/76 99 10/19/16 06:00 91 10/19/16 05:14 98.1 68 16 172/101 94 10/19/16 05:00 90 10/19/16 04:00 88 10/19/16 03:00 91 10/19/16 02:00 91 10/19/16 01:00 88 10/19/16 00:00 93 10/18/16 23:00 88 10/18/16 23:00 98.1 90 16 170/96 97 10/18/16 22:00 85 10/18/16 21:00 68 10/18/16 20:43 98.1 68 16 172/101 94 10/18/16 20:00 73 10/18/16 19:00 73 10/18/16 18:53 70 10/18/16 18:15 98.4 74 18 180/99 94 I/O 10/18/16 10/18/16 10/18/16 10/19/16 10/19/16 10/19/16 07:00 15:00 23:00 07:00 15:00 23:00 Intake Total 360 ml 390 ml Output Total 500 ml 450 ml Balance -140 ml -60 ml Intake Oral 360 ml 360 ml IV Total 30 ml Output Urine Total 350 ml 450 ml Emesis 150 ml Result Diagram: 10/19/16 1325 10/19/16 1325 Imaging Last Impressions Chest X-Ray 10/18/16 1653 Signed Impressions: Service Date/Time: Tuesday, October 18, 2016 17:01 - CONCLUSION: Mild left base atelectasis. No other acute cardiopulmonary disease demonstrated. Candelario Dixon MD Objective Remarks GENERAL: This is a well-nourished, well-developed patient, in no apparent distress. CARDIOVASCULAR: Regular rate and rhythm without murmurs, gallops, or rubs. RESPIRATORY: Clear to auscultation. Breath sounds equal bilaterally. No wheezes , rales, or rhonchi. GASTROINTESTINAL: Abdomen soft, non-tender, nondistended. Normal active bowel sounds MUSCULOSKELETAL: Extremities without clubbing, cyanosis, or edema. NEURO: Alert & Oriented x4 to person, place, time, situation. Moves all ext x4 Procedures 10/18 cardiac catheterization: Multivessel coronary disease, recommend CABG A/P Problem List: (1) CAD (coronary artery disease) ICD Code: I25.10 Status: Acute Plan: Cardiac bypass recommended, cardiac surgery to be scheduled for Thursday Continue Imdur, Lipitor, metoprolol, aspirin, lisinopril Problem Qualifiers (1) CAD (coronary artery disease): Qualified Code: I25.110 - Coronary artery disease involving apache coronary artery of apache heart with unstable angina pectoris Keke Delatorre MD Oct 19, 2016 17:33
[2016-10-19] MEDS: SODIUM CHLORIDE 0.9% FLUSH 5 ML FLUSH IV FLUSH SCH (21:00)
[2016-10-19] MEDS: MUPIROCIN 2% OINT 1 APPLIC/GM SYR EACH NARE SCH (21:00)
[2016-10-19] MEDS: ATORVASTATIN 40 MG TAB PO SCH (21:00)
[2016-10-20] VITALS (29 sets, daily range): BP systolic 105–120; BP diastolic 52–68; PULSE 55–90; RESP 16; TEMP 97.5–98.7; O2SAT 93–98
--- NOTE | 2016-10-20 09:52 | HHI.PR ---
Subjective Remarks Patient seen in follow-up for ST elevation AR. No events overnight and no new complaints today.. Patient comfortable and without complaints this morning Objective Vitals Vital Signs Date Time Temp Pulse Resp B/P Pulse Ox O2 Delivery O2 Flow Rate FiO2 10/20/16 08:31 93 Room Air 10/20/16 08:16 98.0 61 16 105/52 93 10/20/16 06:25 98.6 62 16 120/65 96 10/20/16 06:00 62 10/20/16 05:00 62 10/20/16 04:00 58 10/20/16 03:00 58 10/20/16 02:00 62 10/20/16 01:47 98.7 55 16 106/52 98 10/20/16 01:00 62 10/20/16 00:00 60 10/19/16 23:00 58 10/19/16 22:00 56 10/19/16 21:00 61 10/19/16 20:00 62 10/19/16 19:00 63 10/19/16 18:00 61 10/19/16 17:00 62 10/19/16 16:00 60 10/19/16 15:00 70 10/19/16 15:00 98.6 65 16 126/68 97 10/19/16 14:00 72 10/19/16 13:00 69 10/19/16 12:00 84 10/19/16 11:00 98.6 83 16 156/83 96 10/19/16 11:00 85 10/19/16 10:00 83 I/O 10/19/16 10/19/16 10/19/16 10/20/16 10/20/16 10/20/16 06:59 14:59 22:59 06:59 14:59 22:59 Intake Total 360 ml 390 ml 240 ml Output Total 500 ml 450 ml Balance -140 ml -60 ml 240 ml Intake Oral 360 ml 360 ml 240 ml IV Total 30 ml Output Urine Total 350 ml 450 ml Emesis 150 ml # Voids 1 Result Diagram: 10/19/16 1325 10/19/16 1325 Objective Remarks GENERAL: This is a well-nourished, well-developed patient, in no apparent distress. CARDIOVASCULAR: Regular rate and rhythm without murmurs, gallops, or rubs. RESPIRATORY: Clear to auscultation. Breath sounds equal bilaterally. No wheezes , rales, or rhonchi. GASTROINTESTINAL: Abdomen soft, non-tender, nondistended. Normal active bowel sounds MUSCULOSKELETAL: Extremities without clubbing, cyanosis, or edema. NEURO: Alert & Oriented x4 to person, place, time, situation. Moves all ext x4 Procedures 10/18 cardiac catheterization: Multivessel coronary disease, recommend CABG A/P Problem List: (1) CAD (coronary artery disease) ICD Code: I25.10 Status: Acute Plan: Cardiac bypass recommended, cardiac surgery to be scheduled for Thursday Continue Imdur, Lipitor, metoprolol, aspirin, lisinopril Problem Qualifiers (1) CAD (coronary artery disease): Qualified Code: I25.110 - Coronary artery disease involving deering coronary artery of deering heart with unstable angina pectoris Keke Delatorre MD Oct 20, 2016 09:52
[2016-10-20] MEDS: METOPROLOL TARTRATE 25 MG TAB PO SCH ×2 (10:30→21:13)
[2016-10-20] MEDS: MUPIROCIN 2% OINT 1 APPLIC/GM SYR EACH NARE SCH ×2 (10:30→21:14)
[2016-10-20] MEDS: ASPIRIN EC 81 MG TABEC PO SCH (10:30)
[2016-10-20] MEDS: cefTRIAXone INJ 1,000 MG in SODIUM CHLORIDE 0.9% INJ 100 ML IV SCH (10:30)
[2016-10-20] MEDS: SODIUM CHLORIDE 0.9% FLUSH 5 ML FLUSH IV FLUSH SCH ×2 (10:30→21:14)
--- NOTE | 2016-10-20 10:37 | RADRPT ---
EXAM DATE/TIME: 10/20/2016 09:02 [facility] COMPARISON: No previous studies available for comparison. INDICATIONS : Pre op cardiac surgery. MEDICAL HISTORY : Hypertension. Coronary artery disease. SURGICAL HISTORY : Appendectomy. Cardiac catheterization. ENCOUNTER: Initial ACUITY: 2 days PAIN SCORE: 0/10 LOCATION: Bilateral neck PEAK SYSTOLIC VELOCITIES (cm/sec): ICA/CCA RATIO: Right: 0.6 Left: 0.8 ICA: Right: 71 Left: 87 CCA: Right: 127 Left: 116 ECA: Right: 153 Left: 162 VERTEBRAL: Right: 63 antegrade Left: 67 antegrade Elevated flow velocities and ICA/CCA ratios have been found to correlate with increased degrees of vessel stenosis, calculated as percentage of diameter relative to a normal segment of distal ICA/CCA FINDINGS: RIGHT CAROTID: No significant stenosis is visualized. The waveforms are within normal limits. LEFT CAROTID: No significant stenosis is visualized. The waveforms are within normal limits. VERTEBRAL ARTERIES: Antegrade flow is seen in both vertebral arteries. MISCELLANEOUS: None. CONCLUSION: 1. No evidence for hemodynamically significant stenosis. Marquise Ahuja MD on October 20, 2016 at 10:36 Board Certified Radiologist. This report was verified electronically.
--- NOTE | 2016-10-20 10:39 | RADRPT ---
EXAM DATE/TIME: 10/20/2016 09:17 [facility] COMPARISON: No previous studies available for comparison. INDICATIONS : Pre op cardiac surgery. MEDICAL HISTORY : Hypertension. Coronary artery disease. SURGICAL HISTORY : Appendectomy. Cardiac catheterization. ENCOUNTER: Initial ACUITY: 2 day PAIN SCORE: 0/10 LOCATION: Bilateral legs. TECHNIQUE: Venous ultrasound of the left and right leg was performed from the inguinal ligament to the proximal calf. Real-time, color Doppler and spectral tracing, compression and augmentation techniques were us ed. FINDINGS: There is no evidence for DVT on the left. On the right, there is echogenic material in the popliteal vein and peroneal vein which does not completely compress, at the periphery likely representing chron ic partial thrombosis. There is blood flow seen within the peroneal and posterior tibial veins, commo n femoral, femoral and popliteal veins. CONCLUSION: Echogenic thrombus within the popliteal and peroneal vein on the right, nonocclusive, likely chronic. No evidence for DVT on the left. Marquise Ahuja MD on October 20, 2016 at 10:36 Board Certified Radiologist. This report was verified electronically.
--- NOTE | 2016-10-20 10:50 | PD.CAR.PN ---
CVT Progress Note Subjective/Hospital Course: 76 y/o male presented to the ED c/o substernal chest tightness radiating to both arms and back. He ruled-in for STEMI and was emergently taken to the calibration laboratory technician where he was found to have severe 3 vessel CAD. He denies prior history . EF 65% Past Medical History HTN Type 2 DM/ HGB A1C pending 10/20/16 remains pain free, on room air UA noted / will start rocephin, and repeat UA today Objective: GENERAL: SKIN: Warm and dry. HEAD: Normocephalic. EYES: No scleral icterus. No injection or drainage. NECK: Supple, trachea midline. No JVD or lymphadenopathy. CARDIOVASCULAR: Regular rate and rhythm without murmurs, gallops, or rubs. RESPIRATORY: Breath sounds equal bilaterally. No accessory muscle use. GASTROINTESTINAL: Abdomen soft, non-tender, nondistended. MUSCULOSKELETAL: No cyanosis, or edema. BACK: Nontender without obvious deformity. No CVA tenderness. Vital Signs Date Time Temp Pulse Resp B/P Pulse Ox O2 Delivery O2 Flow Rate FiO2 10/20/16 08:31 93 Room Air 10/20/16 08:16 98.0 61 16 105/52 93 10/20/16 06:25 98.6 62 16 120/65 96 10/20/16 06:00 62 10/20/16 05:00 62 10/20/16 04:00 58 10/20/16 03:00 58 10/20/16 02:00 62 10/20/16 01:47 98.7 55 16 106/52 98 10/20/16 01:00 62 10/20/16 00:00 60 10/19/16 23:00 58 10/19/16 22:00 56 10/19/16 21:00 61 10/19/16 20:00 62 10/19/16 19:00 63 10/19/16 18:00 61 10/19/16 17:00 62 10/19/16 16:00 60 10/19/16 15:00 70 10/19/16 15:00 98.6 65 16 126/68 97 10/19/16 14:00 72 10/19/16 13:00 69 10/19/16 12:00 84 10/19/16 11:00 98.6 83 16 156/83 96 10/19/16 11:00 85 Result Diagram: 10/19/16 1325 10/19/16 1325 Telemetry: NSR (1) Chest pain (2) ST elevation DE (STEMI) Plan: ASA, statin, BB , also on heparin and imdur on schedule for OR in am recheck UA today (3) CAD (coronary artery disease) (4) Diabetes mellitus Plan: await HGB a1c (5) Hypertension Plan: controlled Problem Qualifiers (1) Chest pain: Qualified Code: R07.2 - Precordial pain (2) ST elevation DE (STEMI): Qualified Code: I21.3 - ST elevation myocardial infarction (STEMI), unspecified artery (3) CAD (coronary artery disease): Qualified Code: I25.110 - Coronary artery disease involving seminole coronary artery of seminole heart with unstable angina pectoris Michelle Jefferson Oct 20, 2016 10:50
--- NOTE | 2016-10-20 11:39 | EC ---
Study Study Date:10/19/2016 STUDY CONCLUSIONS SUMMARY - Left ventricle: The cavity size was normal. Wall thickness was increased increased in a pattern of mild to moderate LVH. Systolic function was normal. The estimated ejection fraction was in the range of 55% to 60%. Mild hypokinesis of the mid-distal anterolateral myocardium. Doppler parameters are consistent with abnormal left ventricular relaxation (grade 1 diastolic dysfunction). - Mitral valve: Mild regurgitation. - Tricuspid valve: Mild regurgitation. - Pulmonic valve: Mild regurgitation. - Pulmonary arteries: Systolic pressure was mildly increased. PA peak pressure: 40mm Hg (S). If LV function is below 40, please consider prescribing an ACEI or ARB or document rationale for non-use. PROCEDURE DATA STUDY STATUS: Elective. Procedure: Transthoracic echocardiography. Image quality was good. Scanning was performed from the parasternal, apical, and subcostal acoustic windows. Study completion: The patient tolerated the procedure well. Transthoracic echocardiography. M-mode, complete 2D, complete spectral Doppler, and color Doppler. Patient status: Inpatient. CARDIAC ANATOMY LEFT VENTRICLE: The cavity size was normal. Wall thickness was increased increased in a pattern of mild to moderate LVH. Systolic function was normal. The estimated ejection fraction was in the range of 55% to 60%. Regional wall motion abnormalities: Mild hypokinesis of the mid-distal anterolateral myocardium. Doppler parameters are consistent with abnormal left ventricular relaxation (grade 1 diastolic dysfunction). AORTIC VALVE: Trileaflet; normal thickness, mildly calcified leaflets. Doppler: Transvalvular velocity was within the normal range. There was no stenosis. No regurgitation. AORTA: Aortic root: The aortic root was normal in size. MITRAL VALVE: Structurally normal valve. Doppler: Transvalvular velocity was within the normal range. There was no evidence for stenosis. Mild regurgitation. LEFT ATRIUM: The atrium was at the upper limits of normal in size. RIGHT VENTRICLE: The cavity size was normal. Wall thickness was normal. PULMONIC VALVE: Doppler: Transvalvular velocity was within the normal range. There was no evidence for stenosis. Mild regurgitation. TRICUSPID VALVE: Structurally normal valve. Doppler: Transvalvular velocity was within the normal range. Mild regurgitation. PULMONARY ARTERY: Systolic pressure was mildly increased. RIGHT ATRIUM: The atrium was normal in size. PERICARDIUM: There was no pericardial effusion. SYSTEMIC VEINS: Inferior vena cava: The vessel was normal in size. BASIC MEASUREMENTS ADULT Normal Left ventricle LV internal dimension, ED, chordal level, *39.2 mm 43-52 PLAX LV internal dimension, ES, chordal level, 30.4 mm 23-38 PLAX Fractional shortening, chordal level, PLAX *22 % >29 LV posterior wall thickness, ED 15.5 mm IVS/LVPW ratio, ED 1.11 <1.3 Ventricular septum Septal thickness, ED 17.2 mm Aortic valve Leaflet separation 25 mm 15-26 Right ventricle RV internal dimension, ED, PLAX 25.3 mm 19-38 BASIC MEASUREMENTS ADULT Normal Aortic valve Leaflet separation 25 mm 15-26 Aorta Root diameter, ED 30 mm 20-37 Left atrium Anterior-posterior dimension, ES 39 mm 19-40 LA/aortic root ratio 1.3 DOPPLER MEASUREMENTS ADULT Normal Main pulmonary artery Pressure, S *40 mm Hg =30 Tricuspid valve Regurgitant peak velocity 274 cm/s Peak RV-RA gradient, S 30 mm Hg Maximal regurgitant velocity 274 cm/s Systemic veins Estimated CVP 10 mm Hg Right ventricle RV pressure, S *40 mm Hg <30 LEGEND: Mean values are shown as u=mean value. Asterisk (*) pollack values outside specified normal range. Prepared and signed by Jaime Aggarwal [id number]
--- NOTE | 2016-10-20 11:50 | RADRPT ---
EXAM DATE/TIME: 10/20/2016 09:34 [facility] COMPARISON: No previous studies available for comparison. INDICATIONS : Pre op cardiac surgery. MEDICAL HISTORY : Hypertension. Coronary artery disease. SURGICAL HISTORY : Appendectomy. Cardiac catheterization. ENCOUNTER: Initial ACUITY: 2 day PAIN SCORE: 0/10 LOCATION: Bilateral legs. GREATER SAPHENOUS VEIN THIGH: PROXIMAL: Right 4 mm Left 7 mm MID: Right 2 mm Left 2 mm DISTAL: Right 3 mm Left 4 mm CALF: PROXIMAL: Right 2 mm Left 1 mm MID: Right 2 mm Left 1 mm DISTAL: Right 3 mm Left 1 mm FINDINGS: The venous system of the lower extremities are patent by color Doppler imaging. Measurements of the leg veins (in mm) are listed above. CONCLUSION: 1. Venous mapping as described above. Marquise Ahuja MD on October 20, 2016 at 11:48 Board Certified Radiologist. This report was verified electronically.
--- NOTE | 2016-10-20 14:29 | PD.CARD.PN ---
Subjective Subjective Remarks no complaints no CP Objective Medications Active Medications Atorvastatin Calcium (Lipitor) 40 mg HS PO Last administered on 10/19/16 21:00; Admin Dose 40 MG; Start 10/19/16 at 21:00 Ceftriaxone Sodium/Sodium Chloride (Rocephin Inj/NS Inj) 100 ml @ 200 mls/hr Q24H IV Last administered on 10/20/16 10:30; Admin Dose 200 MLS/HR; Start at 09:00 Isosorbide Mononitrate (Imdur) 30 mg DAILY@07 PO; Start 10/20/16 at 07:00 IV Flush (NS Flush) 2 ml BID IV FLUSH Last administered on 10/20/16 10:30; Admin Dose 2 ML; Start 10/19/16 at 21:00 Mupirocin 1 applic 1 applic BID EACH NARE Last administered on 10/20/16 10:30; Admin Dose 1 APPLIC; Start 10/19/16 at 21:00; Stop 10/24/16 at 20:59 Vital Signs / I&O Vital Signs Date Time Temp Pulse Resp B/P Pulse Ox O2 Delivery O2 Flow Rate FiO2 10/20/16 14:00 68 10/20/16 13:00 72 10/20/16 12:00 66 10/20/16 11:50 98.5 58 16 119/68 96 10/20/16 11:00 60 10/20/16 10:00 63 10/20/16 09:00 67 10/20/16 08:31 93 Room Air 10/20/16 08:16 98.0 61 16 105/52 93 10/20/16 08:00 61 10/20/16 07:00 90 10/20/16 06:25 98.6 62 16 120/65 96 10/20/16 06:00 62 10/20/16 05:00 62 10/20/16 04:00 58 10/20/16 03:00 58 10/20/16 02:00 62 10/20/16 01:47 98.7 55 16 106/52 98 10/20/16 01:00 62 10/20/16 00:00 60 10/19/16 23:00 58 10/19/16 22:00 56 10/19/16 21:00 61 10/19/16 20:00 62 10/19/16 19:00 63 10/19/16 18:00 61 10/19/16 17:00 62 10/19/16 16:00 60 10/19/16 15:00 70 10/19/16 15:00 98.6 65 16 126/68 97 I/O 10/19/16 10/19/16 10/19/16 10/20/16 10/20/16 10/20/16 07:00 15:00 23:00 07:00 15:00 23:00 Intake Total 360 ml 390 ml 240 ml Output Total 500 ml 450 ml Balance -140 ml -60 ml 240 ml Intake Oral 360 ml 360 ml 240 ml IV Total 30 ml Output Urine Total 350 ml 450 ml Emesis 150 ml # Voids 1 Physical Exam GENERAL: SKIN: Warm and dry. HEAD: Normocephalic. EYES: No scleral icterus. No injection or drainage. NECK: Supple, trachea midline. No JVD or lymphadenopathy. CARDIOVASCULAR: Regular rate and rhythm without murmurs, gallops, or rubs. RESPIRATORY: Breath sounds equal bilaterally. No accessory muscle use. GASTROINTESTINAL: Abdomen soft, non-tender, nondistended. MUSCULOSKELETAL: No cyanosis, or edema. BACK: Nontender without obvious deformity. No CVA tenderness. Laboratory Laboratory Tests Test 10/19/16 10/19/16 10/19/16 15:00 17:07 18:17 Urine Color YELLOW Urine Turbidity HAZY Urine pH 5.5 Urine Specific [place] 1.025 Urine Protein 30 mg/dL Urine Glucose (UA) NEG mg/dL Urine Ketones NEG mg/dL Urine Occult Blood SMALL Urine Nitrite NEG Urine Bilirubin NEG Urine Urobilinogen LESS THAN 2.0 MG/DL Urine Leukocyte Esterase LARGE Urine RBC 24 /hpf Urine WBC 115 /hpf Urine WBC Clumps FEW Urine Bacteria RARE /hpf Urine Mucus FEW /lpf Microscopic Urinalysis Comment CULTURE INDICATED Blood Type O POSITIVE O POSITIVE Antibody Screen NEGATIVE Crossmatch Leukocyte-Reduced Red Blood Cells Blood Bank Comment Laboratory Tests Test 10/19/16 10/19/16 10/19/16 15:00 17:07 18:17 Urine Color YELLOW Urine Turbidity HAZY Urine pH 5.5 Urine Specific [place] 1.025 Urine Protein 30 mg/dL Urine Glucose (UA) NEG mg/dL Urine Ketones NEG mg/dL Urine Occult Blood SMALL Urine Nitrite NEG Urine Bilirubin NEG Urine Urobilinogen LESS THAN 2.0 MG/DL Urine Leukocyte Esterase LARGE Urine RBC 24 /hpf Urine WBC 115 /hpf Urine WBC Clumps FEW Urine Bacteria RARE /hpf Urine Mucus FEW /lpf Microscopic Urinalysis Comment CULTURE INDICATED Blood Type O POSITIVE O POSITIVE Antibody Screen NEGATIVE Crossmatch Leukocyte-Reduced Red Blood Cells Blood Bank Comment Imaging Last Impressions Chest X-Ray 10/18/16 8003 Signed Impressions: Service Date/Time: Tuesday, October 18, 2016 17:01 - CONCLUSION: Mild left base atelectasis. No other acute cardiopulmonary disease demonstrated. Candelario Dixon MD Assessment and Plan Problem List: (1) Chest pain (2) ST elevation SC (STEMI) (3) CAD (coronary artery disease) (4) Diabetes mellitus (5) Hypertension Assessment and Plan STEMI - multivessel CAD. OR in am Problem Qualifiers (1) Chest pain: Qualified Code: R07.2 - Precordial pain (2) ST elevation SC (STEMI): Qualified Code: I21.3 - ST elevation myocardial infarction (STEMI), unspecified artery (3) CAD (coronary artery disease): Qualified Code: I25.110 - Coronary artery disease involving [place] coronary artery of [place] heart with unstable angina pectoris Jaime Aggarwal MD Oct 20, 2016 14:29
[2016-10-20 14:40] LABS: BLOOD, URINE LARGE (NEG); COMMENT (UR) CULTURE INDICATED; CULTURE IF INDICATED CULTURE INDICATED; GLUCOSE,URINE NEG (NEG); KETONE, URINE NEG (NEG); MUCUS URINE MANY /lpf (OCC); PH, URINE 5.5 (5.0-8.5); URINE COLOR YELLOW (YELLW/STRAW)
[2016-10-20 14:41] LABS: NITRITE,URINE POS (NEG)
[2016-10-20 14:46] LABS: BACTERIA, URINE MOD /hpf
[2016-10-20 17:56] LABS: HEMOGLOBIN A1a 1.2 %; HEMOGLOBIN A1b 1.1 %; HEMOGLOBIN Ao 83.8 %; HEMOGLOBIN F 1.1 %; HEMOGLOBIN LA1C 2.1 %; HEMOGLOBIN P3 3.9 %
--- NOTE | 2016-10-20 18:08 | EKG ---
Date Performed: 10/19/2016 Time Performed: 11:02:12 PTAGE: 76 years EKG: Sinus rhythm Left axis deviation RBBB with left anterior fascicular block Left ventricular hypertrophy Inferior/l ateral ST-T changes may be due to hypertrophy and/or ischemia When compare to previous tracing, the p atient has had a change In the precordium, and now has a right bundle brach block. Abnormal ECG PREVIOUS TRACING : 10/18/2016 16.55 DOCTOR: Olive Brock Interpretating Date/Time 10/20/2016 18:07:07
[2016-10-20] MEDS ORDERED: NITROGLYCERIN 0.4 MG SL 25 TABS/BTL SL PRN (18:30)
[2016-10-20] MEDS: ATORVASTATIN 40 MG TAB PO SCH (21:13)
[2016-10-21] VITALS (20 sets, daily range): BP systolic 82–143; BP diastolic 49–74; PULSE 55–89; RESP 10–19; TEMP 96.6–98.6; O2SAT 94–99
[2016-10-21] MEDS: LACTATED RINGER'S 1000 ML IV SCH (01:15)
[2016-10-21] MEDS ORDERED: NITROGLYCERIN-DEXTROSE INJ 250 ML IV ONE (05:00)
[2016-10-21] MEDS ORDERED: PHENYLEPHRINE HCL 10 MG/ML VIAL IV ONE (05:00)
[2016-10-21] MEDS ORDERED: GLYCOPYRROLATE 0.2 MG/ML VIAL IV ONE (05:00)
[2016-10-21] MEDS ORDERED: ACETAMINOPHEN 1000 MG/100 ML VIAL IV ONE (05:00)
[2016-10-21] MEDS ORDERED: HEPARIN SODIUM - SQ 10,000 UNITS/ML VIAL SQ ONE (05:00)
[2016-10-21] MEDS ORDERED: VECURONIUM BROMIDE 10 MG VIAL IV ONE (05:00)
[2016-10-21] MEDS ORDERED: cefTRIAXone 2 GM PREMIX INJ 50 ML IV ONE (05:00)
[2016-10-21] MEDS ORDERED: PROTAMINE SULFATE 250 MG/25 ML VIAL IV ONE ×2 (05:00→12:58)
[2016-10-21] MEDS ORDERED: MAGNESIUM SULFATE 1000 MG/2 ML VIAL (PED) IV ONE (05:00)
[2016-10-21] MEDS ORDERED: DEXMEDETOMIDINE INJ 50 ML IV ONE (05:00)
[2016-10-21] MEDS ORDERED: AMIODARONE HCL 150 MG/3 ML VIAL IV ONE (05:00)
[2016-10-21] MEDS ORDERED: AMINOCAPROIC ACID INJ 250 MG/ML 20 ML VIAL IV ONE (05:00)
[2016-10-21] MEDS: METOPROLOL TARTRATE 25 MG TAB PO SCH (05:52)
[2016-10-21] MEDS: ISOSORBIDE MONONITRATE 30 MG TAB PO SCH ×2 (05:52→05:55)
[2016-10-21] MEDS ORDERED: HEPARIN SODIUM - SQ 10,000 UNITS/ML VIAL ONE (06:21)
[2016-10-21] MEDS ORDERED: VANCOMYCIN HCL 1000 MG VIAL ONE (06:21)
[2016-10-21] MEDS ORDERED: methylPREDNISolone SOD SUCC 125 MG/2 ML VIAL ONE (06:22)
[2016-10-21 07:03] LABS: HEMATOCRIT 39.3 % (39.0-51.0); MEAN CELL VOLUME 83.5 FL (80.0-100.0); MEAN CORPUSCULAR HEMOGLOBIN 27.9 PG (27.0-34.0); MEAN CORPUSCULAR HGB CONC 33.5 % (32.0-36.0); PLATELET COUNT 195 TH/MM3 (150-450); RED CELL DISTRIBUTION WIDTH 14.5 % (11.6-17.2); REVIEW FLAG FINAL; WHITE BLOOD COUNT 5.3 TH/MM3 (4.0-11.0)
[2016-10-21] MEDS ORDERED: CARDIOPLEGIC IRR 1,000 ML ONE (07:04)
[2016-10-21] MEDS ORDERED: HEPARIN SODIUM - IV 10,000 UNITS/10 ML VIAL ONE (07:04)
[2016-10-21] MEDS ORDERED: POTASSIUM CHLORIDE 20 MEQ/10 ML VIAL ONE ×2 (07:05→07:07)
[2016-10-21] MEDS ORDERED: SODIUM BICARBONATE 8.4% INJ 50 ML ONE (07:08)
[2016-10-21] MEDS ORDERED: MANNITOL INJ 50 ML ONE (07:09)
[2016-10-21] MEDS ORDERED: CALCIUM CHLORIDE 10% SOLN 1 GRAM/10 ML SYR ONE (07:09)
[2016-10-21] MEDS ORDERED: ALBUMIN HUMAN 25% 12.5 GM/50 ML BAGP IV ONE (07:09)
[2016-10-21 07:32] LABS: HDL CHOLESTEROL 39.4 MG/DL (40.0-60.0)
[2016-10-21] MEDS: cefTRIAXone INJ 1,000 MG in SODIUM CHLORIDE 0.9% INJ 100 ML IV SCH (09:00)
[2016-10-21] MEDS: MUPIROCIN 2% OINT 1 APPLIC/GM SYR EACH NARE SCH ×2 (09:00→21:00)
[2016-10-21] MEDS: ASPIRIN EC 81 MG TABEC PO SCH (09:00)
[2016-10-21] MEDS: SODIUM CHLORIDE 0.9% FLUSH 5 ML FLUSH IV FLUSH SCH ×2 (09:00→21:20)
[2016-10-21] MEDS ORDERED: DEXMEDETOMIDINE INJ 50 ML ONE (10:31)
[2016-10-21] MEDS ORDERED: LACTATED RINGER'S 1000 ML INJ 500 ML IV PRN (11:16)
[2016-10-21] MEDS ORDERED: DEXTROSE 50% IN WATER 50 ML VIAL(D50) IV PUSH PRN (11:30)
[2016-10-21] MEDS ORDERED: METOPROLOL TARTRATE 5 MG/5 ML VIAL IV PUSH PRN (11:30)
[2016-10-21] MEDS ORDERED: INSULIN REGULAR (IV INFUSION) 100 UNITS in SODIUM CHLORIDE 0.9% INJ 99 ML IV SCH (11:30)
[2016-10-21] MEDS ORDERED: ACETAMINOPHEN 325 MG TAB PO PRN (11:30)
[2016-10-21] MEDS ORDERED: ONDANSETRON HCL 4 MG/2 ML VIAL IV PUSH PRN (11:30)
[2016-10-21] MEDS ORDERED: POTASSIUM CHLORIDE 20 MEQ CONTROLLED RELEASE TAB PO PRN ×2 (11:30)
[2016-10-21] MEDS ORDERED: MAGNESIUM SULFATE INJ 2 GM in SODIUM CHLORIDE 0.9% INJ 100 ML IV PRN ×4 (11:30)
[2016-10-21] MEDS ORDERED: CALCIUM CHLORIDE 10% 1 GRAM/10 ML VIAL IV PRN (11:30)
[2016-10-21] MEDS ORDERED: SODIUM CHLORIDE 0.9% FLUSH 5 ML FLUSH IV FLUSH PRN (11:30)
[2016-10-21] MEDS ORDERED: CLEVIDIPINE INJ 50 ML IV SCH (11:30)
[2016-10-21] MEDS ORDERED: ACETAMINOPHEN 650 MG SUPP RECTAL PRN (11:30)
[2016-10-21] MEDS ORDERED: CALCIUM CHLORIDE INJ 1 GM in SODIUM CHLORIDE 0.9% INJ 100 ML IV PRN (11:30)
[2016-10-21] MEDS ORDERED: POTASSIUM CHLOR 20 MEQ PREMIX 100 ML IV PRN ×3 (11:30)
[2016-10-21] MEDS ORDERED: hydrALAZINE HCL 20 MG/ML VIAL IV PRN (11:30)
[2016-10-21] MEDS ORDERED: ceFAZolin INJ 1,000 MG VIAL IV ONE (11:31)
--- NOTE | 2016-10-21 11:33 | PD.OP ---
cc: Ayana Akbar MD; Jaime Aggarwal MD Operative Report Date of Surgery: Oct 21, 2016 Preoperative Diagnosis: (1) ST elevation [place] (STEMI) (2) CAD (coronary artery disease) Postoperative Diagnosis: same Procedure: CABG x 5 BROWN to LAD - fair with diffuse disease SVG to D1 - good SVG to D2 - good SVG to RI - good SVG to L PLB - good EVH Anesthesia: Dr. Workman Surgeon: Ayana Akbar [employer] Installer(s): Roque Bran Operation and Findings: The risks, benefits, complications, treatment options, and expected outcomes were discussed with the patient. The possibilities of reaction to medication, pulmonary aspiration, perforation of viscus, bleeding, recurrent infection, the need for additional procedures, failure to diagnose a condition, and creating a complication requiring transfusion or operation were discussed with the patient. The patient concurred with the proposed plan, giving informed consent. The site of surgery properly noted/marked. The patient was taken to Operating Room, identified as Martín Lares and the procedure verified as CABG, EVH. A Time Out was held and the above information confirmed. Standard monitoring lines and Nguyen catheter were placed. General anesthesia was induced. The patient was prepped and draped in a sterile fashion. A median sternotomy was performed and electrocautery was used to obtain hemostasis. The left internal mammary artery was procured as a pedicle from the 7th rib to the 1st rib in the usual manner. Simultaneously left greater saphenous vein was procured from the left leg using a minimally invasive endoscopic technique. The vein was prepared for anastomosis and the leg wound was irrigated and closed in 2 layers. The pericardium was opened and a pericardial sling was created using interrupted 0 silk sutures. The patient was heparinized for cardiopulmonary bypass and the distal mammary pedicle was instrumented for anastomosis. The heart was instrumented for cardiopulmonary bypass in the usual manner. Antegrade blood cardioplegia was employed. The patient was placed on cardiopulmonary bypass. An aortic cross-clamp was applied and the heart was arrested using cold blood cardioplegia. Antegrade cardioplegia was administered after he each anastomosis. After adequate arrest, the distal LCx circulation was investigated and the left PLB was opened with a [place] blade and found to be a 1.5 millimeter good target. Saphenous vein was approximated to the L PLB artery using a running 7 0 Prolene suture. The graft was measured for length and orientation and the proximal anastomosis was constructed to the ascending aorta using a running 5 0 Prolene suture after creating an aortotomy with a 5 millimeter punch. The ramus intermedius artery was then opened with a [place] blade and found to be a 1.5 millimeter good target. Saphenous vein was approximated to the RI artery using a running 7 0 Prolene suture. The graft was measured for length and orientation and the proximal anastomosis was constructed to the ascending aorta using a running 5 0 Prolene suture after creating an aortotomy with a 5 millimeter punch. The D1 artery was then opened with a [place] blade and found to be a 1.5 millimeter good target. Saphenous vein was approximated to the D1 artery using a running 7 0 Prolene suture. The graft was measured for length and orientation and suspended from the pericardium. .The D2 artery was then opened with a [place] blade and found to be a 1.5 millimeter good target. Saphenous vein was approximated to the D2 artery using a running 7 0 Prolene suture. The graft was measured for length and orientation and suspended from the pericardium. .The distal LAD was opened with a [place] blade and found to be a 1.5 millimeter fair target with heavy plaque burden throughout its length . The left internal mammary artery was approximated to the LAD using a running 7 0 Prolene suture. The pedicle was attached to the epicardium using interrupted 5 0 silk suture. The patient was systemically rewarmed and received a hotshot dose of warm blood cardioplegia. The aorta was vented and the proximal anastomosis to the D1 graft was accomplished using a running 5 0 Prolene suture after creating an aortotomy was a 5 millimeter punch. The cross-clamp was removed and all proximal and distal anastomoses were examined for hemostasis. The D2 proximal anastomosis was then accomplished by approximating the D2 vein to the D1 vein graft in an end to side manner with a running 7-0 prolene suture. Temporary atrial pacing on wires were positioned and brought out through the skin in the usual manner. The patient was paced at 80 beats per minute and weaned from cardiopulmonary bypass. Protamine was given. There was no adverse reaction. Decannulation was carried out without incident. Wound was checked for hemostasis which was obtained using electrocautery. A 36 [place] mediastinal and 32 [place] left pleural chest was were placed and secured to the skin with 0 silk suture. The sternum was closed with stainless steel wire. The fascia was closed with 1. PDS. The subcutaneous tissue was closed using a running 2-0 Vicryl suture. The skin was closed with 4-0 Monocryl. Sterile dressings were placed. At the end of the operation, all sponge, instruments, and needle counts were correct. The patient was transferred to the CICU in stable condition. Findings: Soft plaque with calcific debris in the ascending aorta. The root and ascending aorta was irrigated on several occasion and vented throughout. The LAD had heavy soft plaque throughout its length. XC: 87 min CPB: 109 min Drains: mediastinal x 1 pleural x 1 Complications: none Disposition: to CVICU in stable condition Pacing Wires: 2 atrial Ayana Akbar MD Oct 21, 2016 11:33
[2016-10-21] MEDS ORDERED: Post-op Orders (for Pharmacy) MISC OTHER ONE (12:00)
[2016-10-21] MEDS ORDERED: MIDAZOLAM HCL 5 MG/5 ML VIAL ONE ×2 (12:07)
[2016-10-21] MEDS ORDERED: fentaNYL CITRATE 1000 MCG/20 ML VIAL ONE (12:08)
[2016-10-21 12:54] LABS: BLOOD GAS BASE EXCESS -2.7 mmol/L (-2-2); BLOOD GAS CARBOXYHEMOGLOBIN 1.4 % (0-4); BLOOD GAS HCO3 22 mmol/L (22-26); BLOOD GAS O2 HGB SATURATION 95 % (90-100); BLOOD GAS OXYGEN CONTENT 14.1 Vol % (12.0-20.0); BLOOD GAS PCO2 39 mmHg (38-42); BLOOD GAS PO2 102 mmHg (61-120); BLOOD GAS TOTAL HGB 10.4 G/DL (12.0-16.0); CRITICAL VALUE NO; FIO2 60 %; OXYGEN DEVICE VENTILATOR; TEMP CORR TO 98.6; VENT SETTINGS SIMV 10/500/+5PEEP
[2016-10-21 12:55] LABS: DRAW SITE ART LINE; STAT NO
[2016-10-21] MEDS ORDERED: SODIUM CHLORID 0.9% 500 ML INJ 500 ML IV ONE (12:56)
[2016-10-21] MEDS ORDERED: SODIUM CHLOR 0.9% 250 ML INJ 250 ML IV ONE (12:56)
[2016-10-21] MEDS ORDERED: LACTATED RINGER'S 1000 ML INJ 4,000 ML IV ONE (12:56)
--- NOTE | 2016-10-21 12:57 | RADRPT ---
EXAM DATE/TIME: 10/21/2016 12:25 [facility] COMPARISON: CHEST SINGLE AP, October 18, 2016, 17:01. INDICATIONS : Post op open heart surgery. MEDICAL HISTORY : Hypertension. Coronary artery disease. SURGICAL HISTORY : Appendectomy. Cardiac catheterization. ENCOUNTER: Subsequent ACUITY: 2 days PAIN SCORE: Non-responsive. LOCATION: Bilateral chest FINDINGS: A single view of the chest demonstrates postoperative changes characteristic of cardiothoracic surger y. The support devices are in place. There is no pneumothorax. The lungs are grossly clear. The heart size is stable. There are no pleural effusions. CONCLUSION: Satisfactory postoperative chest Rex Shilo Duff MD on October 21, 2016 at 12:55 Board Certified Radiologist. This report was verified electronically.
[2016-10-21] MEDS: ACETAMINOPHEN 1000 MG/100 ML VIAL IV SCH ×2 (13:37→17:31)
[2016-10-21] MEDS: AMIODARONE 200 MG TAB PO SCH ×3 (13:58→21:20)
[2016-10-21] MEDS ORDERED: DOPamine INJ PREMIX 500 ML ONE (14:46)
--- NOTE | 2016-10-21 15:31 | HHI.PR ---
Subjective Remarks Follow-up for coronary artery disease Patient status post CABG this morning, just extubated, patient still quite groggy, denies any shortness of breath or chest pain. Mild pain in the surgical site otherwise no complaints. Blood pressure is still soft but patient is mentating okay, still on dopamine drip. Discussed with RN. Objective Vitals Vital Signs Date Time Temp Pulse Resp B/P Pulse Ox O2 Delivery O2 Flow Rate FiO2 10/21/16 15:27 79 10/21/16 15:26 96 Mechanical Ventilator 60 10/21/16 14:00 98.6 10/21/16 13:00 79 10/21/16 12:43 96.9 56 10 124/74 97 129/55 10/21/16 12:43 60 10/21/16 12:43 97 Mechanical Ventilator 60 10/21/16 12:43 96.6 10/21/16 12:00 78 10/21/16 11:57 99 60 10/21/16 06:00 59 10/21/16 05:00 55 10/21/16 04:00 67 10/21/16 03:00 62 10/21/16 03:00 98.2 70 16 143/73 98 10/21/16 02:00 60 10/21/16 01:00 89 10/21/16 00:00 61 10/20/16 23:00 62 10/20/16 23:00 59 10/20/16 22:00 60 10/20/16 21:00 70 10/20/16 20:00 67 10/20/16 19:00 76 10/20/16 19:00 98.3 67 16 107/54 95 10/20/16 19:00 95 Room Air 10/20/16 18:00 80 10/20/16 17:00 76 10/20/16 16:02 97.5 70 16 114/59 97 10/20/16 16:00 70 I/O 10/20/16 10/20/16 10/20/16 10/21/16 10/21/16 10/21/16 07:00 15:00 23:00 07:00 15:00 23:00 Intake Total 240 ml 700 ml 480 ml Output Total 450 ml 300 ml Balance 240 ml 250 ml 180 ml Intake Oral 240 ml 600 ml 480 ml IV Total 100 ml 0 ml Output Urine Total 450 ml 300 ml Stool Total 0 ml # Voids 1 Result Diagram: 10/21/16 0550 10/19/16 1325 Objective Remarks GENERAL: This is a well-nourished, well-developed patient, in no apparent distress. CARDIOVASCULAR: Regular rate and rhythm without murmurs, gallops, or rubs. RESPIRATORY: Clear to auscultation. Breath sounds equal bilaterally. No wheezes , rales, or rhonchi. GASTROINTESTINAL: Abdomen soft, non-tender, nondistended. Normal active bowel sounds MUSCULOSKELETAL: Extremities without clubbing, cyanosis, or edema. NEURO: Alert & Oriented x4 to person, place, time, situation. Moves all ext x4 Not in distress, well-nourished, looks stated age PERRL, pink conjunctiva without injection, anicteric Airway patent. Supple neck, no masses or thyromegaly, trachea midline Normal rate and regular rhythm, no murmurs gallops or rubs appreciated. Sterile dressings in place. Clear to auscultation and symmetric bilaterally, poor effort. Normal bowel sounds, soft, non-tender, nondistended, no guarding. Extremities without clubbing, cyanosis, trace edema. No rash of generalized distribution. Skin is warm and dry. 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 Procedures 10/18 cardiac catheterization: Multivessel coronary disease, recommend CABG A/P Problem List: (1) CAD (coronary artery disease) ICD Code: I25.10 Status: Acute Assessment and Plan Coronary artery disease- status post cardiac catheterization, showed multivessel disease, status post CABG 10/21/16, currently on dopamine drip, blood pressure still soft, wean today, continue IVF, discussed with RN. Continue Lipitor, metoprolol, aspirin, lisinopril, amiodarone. CardioVascular surgery and cardiology following. Check CBC and BMP tomorrow. DVT prophylaxis: Per surgery Problem Qualifiers (1) CAD (coronary artery disease): Qualified Code: I25.110 - Coronary artery disease involving [place] coronary artery of [place] heart with unstable angina pectoris Kaiden Caldwell MD Oct 21, 2016 15:31
[2016-10-21] MEDS ORDERED: DOPamine 800 MG/D5W PREMIX 500 ML IV SCH (16:00)
[2016-10-21] MEDS: METOCLOPRAMIDE HCL 10 MG/2 ML VIAL IV PUSH SCH ×2 (16:15→21:20)
[2016-10-21] MEDS: oxyCODONE/ACETAMINOPHEN 5 MG/325 MG TAB PO PRN ×2 (19:20→23:31)
[2016-10-21] MEDS: ATORVASTATIN 40 MG TAB PO SCH (21:21)
[2016-10-22] VITALS (18 sets, daily range): BP systolic 113–141; BP diastolic 55–68; PULSE 75–87; RESP 16–18; TEMP 97.6–99.3; O2SAT 93–98
[2016-10-22] MEDS: LACTATED RINGER'S 1000 ML IV SCH (01:15)
[2016-10-22] MEDS ORDERED: RESP: RACEPINEPHRINE 2.25% 0.5 ML NEB NEB PRN (01:30)
[2016-10-22] MEDS ORDERED: RESP: ALBUTEROL 2.5 MG/IPRATROPIUM 0.5 MG NEB (PRN) NEB (01:30)
[2016-10-22] MEDS ORDERED: RESP: ALBUTEROL 2.5 MG/IPRATROPIUM 0.5 MG NEB (SCH) NEB (04:00)
--- NOTE | 2016-10-22 04:43 | RADRPT ---
EXAM DATE/TIME: 10/22/2016 04:04 [facility] COMPARISON: CHEST SINGLE AP, October 21, 2016, 12:25. INDICATIONS : Status post CABG. MEDICAL HISTORY : Hypertension. Coronary artery disease. SURGICAL HISTORY : Appendectomy. Cardiac catheterization. ENCOUNTER: Subsequent ACUITY: 3 days PAIN SCORE: Non-responsive. LOCATION: Bilateral chest FINDINGS: A single portable frontal view the chest shows interval removal of the endotracheal tube and nasogast michael tube. Thoracostomy tubes remain as does the central line. No pneumothorax. Mild bibasilar atelect asis. No effusions. Heart is normal in size. The sternotomy wires noted. CONCLUSION: Minimal bibasilar atelectasis. No pneumothoraces. Rajendra Cary Jr., MD on October 22, 2016 at 4:41 Board Certified Radiologist. This report was verified electronically.
[2016-10-22 05:05] LABS: AUTOMATED NEUTROPHIL # 8.9 TH/MM3 (1.8-7.7); HEMATOCRIT 35.6 % (39.0-51.0); HEMO FLAGS DIFF FINAL; LYMPHOCYTE # 1.4 TH/MM3 (1.0-4.8); MEAN CORPUSCULAR HEMOGLOBIN 27.5 PG (27.0-34.0); MEAN CORPUSCULAR HGB CONC 33.1 % (32.0-36.0); MONO % 6.1 % (0.0-8.0); NEUT % 80.9 % (16.0-70.0); PLATELET COUNT 157 TH/MM3 (150-450); RED BLOOD COUNT 4.29 MIL/MM3 (4.50-5.90); RED CELL DISTRIBUTION WIDTH 14.3 % (11.6-17.2)
[2016-10-22 05:20] LABS: BICARBONATE 22.2 MEQ/L (21.0-32.0); MAGNESIUM 2.1 MG/DL (1.5-2.5); POTASSIUM 4.2 MEQ/L (3.5-5.1)
[2016-10-22] MEDS: ACETAMINOPHEN 1000 MG/100 ML VIAL IV SCH ×2 (05:55)
[2016-10-22] MEDS: METOCLOPRAMIDE HCL 10 MG/2 ML VIAL IV PUSH SCH (05:56)
[2016-10-22] MEDS: PANTOPRAZOLE SOD 40 MG DELAYED RELEASE TAB PO SCH (05:56)
[2016-10-22] MEDS: AMIODARONE 200 MG TAB PO SCH ×3 (05:56→22:10)
[2016-10-22] MEDS: ASPIRIN 81 MG CHEW TAB PO SCH (08:49)
[2016-10-22] MEDS: MUPIROCIN 2% OINT 1 APPLIC/GM SYR EACH NARE SCH ×2 (08:49→20:31)
[2016-10-22] MEDS: SODIUM CHLORIDE 0.9% FLUSH 5 ML FLUSH IV FLUSH SCH ×2 (08:50→19:55)
[2016-10-22] MEDS ORDERED: SOD PHOSPHATE/SOD BIPHOSPHATE (ADULT) ENEMA 133ML RECTAL PRN (09:15)
[2016-10-22] MEDS ORDERED: GLUCAGON 1 MG/ML VIAL OTHER PRN (09:15)
[2016-10-22] MEDS ORDERED: MAGNESIUM HYDROXIDE SUSP 30 ML CUP PO PRN (09:15)
[2016-10-22] MEDS ORDERED: BISACODYL EC 5 MG TABEC PO PRN (09:15)
[2016-10-22] MEDS ORDERED: BISACODYL 10 MG SUPP RECTAL PRN (09:15)
[2016-10-22] MEDS ORDERED: DEXTROSE 50% IN WATER 50 ML VIAL(D50) IV PRN (09:15)
[2016-10-22] MEDS ORDERED: PILL SPLITTER OTHER PRN (09:30)
[2016-10-22] MEDS: INSULIN ASPART SUPPLEMENTAL SCALE SQ SCH ×4 (10:00→22:10)
--- NOTE | 2016-10-22 11:08 | EKG ---
Date Performed: 10/22/2016 Time Performed: 03:43:46 PTAGE: 76 years EKG: Sinus rhythm Left axis deviation Abnormal ECG PREVIOUS TRACING : 10/19/2016 11.02 DOCTOR: Jaime Aggarwal Interpretating Date/Time 10/22/2016 11:07:49
--- NOTE | 2016-10-22 11:31 | PD.CAR.PN ---
CVT Progress Note Subjective/Hospital Course: 76 y/o male presented to the ED c/o substernal chest tightness radiating to both arms and back. He ruled-in for STEMI and was emergently taken to the [facility] where he was found to have severe 3 vessel CAD. He denies prior history . EF 65% Past Medical History HTN Type 2 DM/ HGB A1C pending 10/20/16 remains pain free, on room air UA noted / will start rocephin, and repeat UA today 10/21 CABG x 5 episode of Afib in OR/ post IV amiodarone atraumatic intubation, +2500 ml crystalloids, urine -500, cellsaver 750ml required short term A pacing 10/22 extubated DOS up in chair , on nasal cannula remains in NSR + 8 kg, scheduled diuresis continue po amiodarone / start BB will transfer to stepdown Objective: GENERAL: well nourished SKIN: Warm and dry./ prevena to chest / ksenia wrap to left leg HEAD: Normocephalic. EYES: No scleral icterus. No injection or drainage. NECK: Supple, trachea midline. No JVD or lymphadenopathy. CARDIOVASCULAR: Regular rate and rhythm without murmurs, gallops, or rubs. mild general edema RESPIRATORY: Breath sounds equal bilaterally. No accessory muscle use chest tube to wall suction, no air leak , drained 240cc/ 12 hrs . GASTROINTESTINAL: Abdomen soft, non-tender, nondistended. MUSCULOSKELETAL: No cyanosis, or edema. BACK: Nontender without obvious deformity. No CVA tenderness. Vital Signs Date Time Temp Pulse Resp B/P Pulse Ox O2 Delivery O2 Flow Rate FiO2 10/22/16 07:30 96 Nasal Cannula 3.00 10/22/16 03:20 96 Nasal Cannula 3.00 10/22/16 03:20 83 10/22/16 03:20 98.0 87 16 113/68 96 141/58 10/22/16 03:20 83 10/21/16 23:04 87 10/21/16 23:04 98.0 87 18 108/73 94 120/58 10/21/16 23:04 94 Nasal Cannula 3.00 10/21/16 23:04 87 10/21/16 20:06 97 Nasal Cannula 2.00 10/21/16 19:17 96 Nasal Cannula 3.00 10/21/16 19:17 78 1/3/17 19:17 98.1 78 19 93/55 96 97/60 10/21/16 19:00 78 10/21/16 16:15 97 Nasal Cannula 3 10/21/16 16:15 97 Nasal Cannula 3.00 10/21/16 16:00 60 10/21/16 15:50 94 40 10/21/16 15:42 79 10/21/16 15:34 95 50 10/21/16 15:31 50 10/21/16 15:29 97.8 79 10 84/49 96 82/55 10/21/16 15:27 79 10/21/16 15:26 96 Mechanical Ventilator 60 10/21/16 14:00 98.6 10/21/16 13:00 79 10/21/16 12:43 96.9 56 10 124/74 97 129/55 10/21/16 12:43 60 10/21/16 12:43 97 Mechanical Ventilator 60 10/21/16 12:43 96.6 10/21/16 12:00 78 10/21/16 11:57 99 60 Labs: Laboratory Tests Test 10/22/16 04:35 White Blood Count 11.0 TH/MM3 (4.0-11.0) Red Blood Count 4.29 MIL/MM3 (4.50-5.90) Hemoglobin 11.8 GM/DL (13.0-17.0) Hematocrit 35.6 % (39.0-51.0) Mean Corpuscular Volume 83.0 FL (80.0-100.0) Mean Corpuscular Hemoglobin 27.5 PG (27.0-34.0) Mean Corpuscular Hemoglobin 33.1 % Concent (32.0-36.0) Red Cell Distribution Width 14.3 % (11.6-17.2) Platelet Count 157 TH/MM3 (150-450) Mean Platelet Volume 7.6 FL (7.0-11.0) Neutrophils (%) (Auto) 80.9 % (16.0-70.0) Lymphocytes (%) (Auto) 13.0 % (9.0-44.0) Monocytes (%) (Auto) 6.1 % (0.0-8.0) Eosinophils (%) (Auto) 0.0 % (0.0-4.0) Basophils (%) (Auto) 0.0 % (0.0-2.0) Neutrophils # (Auto) 8.9 TH/MM3 (1.8-7.7) Lymphocytes # (Auto) 1.4 TH/MM3 (1.0-4.8) Monocytes # (Auto) 0.7 TH/MM3 (0-0.9) Eosinophils # (Auto) 0.0 TH/MM3 (0-0.4) Basophils # (Auto) 0.0 TH/MM3 (0-0.2) CBC Comment DIFF FINAL Differential Comment Sodium Level 139 MEQ/L (136-145) Potassium Level 4.2 MEQ/L (3.5-5.1) Chloride Level 107 MEQ/L (98-107) Carbon Dioxide Level 22.2 MEQ/L (21.0-32.0) Anion Gap 10 MEQ/L (5-15) Blood Urea Nitrogen 14 MG/DL (7-18) Creatinine 1.10 MG/DL (0.60-1.30) Estimat Glomerular Filtration 79 ML/MIN (>89) Rate Random Glucose 100 MG/DL (74-106) Calcium Level 8.5 MG/DL (8.5-10.1) Magnesium Level 2.1 MG/DL (1.5-2.5) Result Diagram: 10/22/1643410/22/16434 Telemetry: NSR (1) ST elevation [place] (STEMI) Plan: ASA, statin, BB , also on heparin and imdur on schedule for OR in am recheck UA today (2) S/P CABG x 5 Plan: on ASA, BB , Statin aggressive pulm toileting nebs ezpap acapella OOB/ ambulate transfer to stepdown (3) CAD (coronary artery disease) (4) Hypertension Plan: controlled (5) Afib Plan: resolved, post IV amiodarone, now on po (6) UTI (urinary tract infection) Plan: ecoli, continue ancef/ start po in am Problem Qualifiers (1) ST elevation PA (STEMI): Qualified Code: I21.3 - ST elevation myocardial infarction (STEMI), unspecified artery (2) CAD (coronary artery disease): Qualified Code: I25.110 - Coronary artery disease involving [place] coronary artery of [place] heart with unstable angina pectoris Michelle Jefferson Oct 22, 2016 11:31
[2016-10-22] MEDS: METOPROLOL TARTRATE 25 MG TAB PO SCH ×2 (11:49→19:55)
[2016-10-22] MEDS: FUROSEMIDE 40 MG/4 ML VIAL IV PUSH SCH ×2 (11:50→17:51)
[2016-10-22] MEDS: POTASSIUM CHLORIDE 20 MEQ CONTROLLED RELEASE TAB PO SCH ×2 (11:50→19:54)
[2016-10-22] MEDS ORDERED: oxyCODONE/ACETAMINOPHEN 5 MG/325 MG TAB PO PRN ×2 (12:30)
--- NOTE | 2016-10-22 13:06 | PD.CARD.PN ---
Subjective Subjective Remarks recovering well no complaints Objective Medications Active Medications Amiodarone HCl 400 mg 400 mg Q8HR PO Last administered on 10/22/16 05:56; Admin Dose 400 MG; Start 10/21/16 at 14:00 Aspirin (Aspirin Chew) 81 mg DAILY PO Last administered on 10/22/16 08:49; Admin Dose 81 MG; Start 10/22/16 at 09:00 Bisacodyl (Dulcolax Ec) 5 mg UNSCH PRN PO; Start 10/22/16 at 09:15 Bisacodyl (Dulcolax Supp) 10 mg UNSCH PRN RECTAL; Start 10/22/16 at 09:15; Stop 10/22/16 at 09:24; Status DC Cefazolin Sodium/ Sodium Chloride (Ancef Inj/NS Inj) 100 ml @ 200 mls/hr Q8H IV Last administered on 10/22/16 05:56; Admin Dose 200 MLS/HR; Start 10/21/16 at 15:00; Stop 10/22/16 at 23:29 Dextrose (D50w (Vial) Inj) 25 ml UNSCH PRN IV; Start 10/22/16 at 09:15 Docusate Sodium (Colace) 100 mg BID PO; Start 10/22/16 at 21:00 Dopamine HCl/ Dextrose 500 ml @ As Directed STK-MED ONCE .ROUTE; Start 10/21/16 at 14:46; Stop 10/22/16 at 09:07; Status DC Dopamine HCl/ Dextrose (DOPamine INJ PREMIX) 500 ml @ 0 mls/hr TITRATE IV Last administered on 10/21/16 15:13; Admin Dose 0 MLS/HR; Start 10/21/16 at 16:00; Stop 10/22/16 at 09:07; Status DC Furosemide (Lasix Inj) 40 mg BID@09,18 IV PUSH Last administered on 10/22/16 11: 50; Admin Dose 40 MG; Start 10/22/16 at 09:30 Glucagon (Glucagon Inj) 1 mg UNSCH PRN OTHER; Start 10/22/16 at 09:15 Insulin Aspart (NovoLOG SUPPLEMENTAL SCALE) 1 02,06,10,14,18,22 SQ; Start at 10:00; Stop 10/23/16 at 06:01 Insulin Aspart (NovoLOG SUPPLEMENTAL SCALE) 1 ACHS SQ; Start 10/23/16 at 11:00 IV Flush 2 ml 2 ml BID IV FLUSH Last administered on 10/22/16 08:50; Admin Dose 2 ML; Start 10/21/16 at 21:00 Magnesium Hydroxide (Milk Of Magnesia Liq) 30 ml DAILY PRN PO; Start 10/22/16 at 09:15 Metoclopramide HCl (Reglan Inj) 10 mg ACHS IV PUSH Last administered on 05:56; Admin Dose 10 MG; Start 10/21/16 at 16:00; Stop 10/22/16 at 09:05; Status DC Metoprolol Tartrate (Lopressor) 12.5 mg BID PO Last administered on 10/22/16 11: 49; Admin Dose 12.5 MG; Start 10/22/16 at 09:15 Miscellaneous (Pill Splitter) 1 ea UNSCH PRN OTHER; Start 10/22/16 at 09:30 Multivitamins/ Minerals Therapeutic (Theragran M Tab) 1 tab DAILY PO; Start 10/23 at 09:00 Oxycodone/ Acetaminophen (Percocet 5-325 Mg) 1 tab Q4H PRN PO; Start 10/22/16 at 12:30 Oxycodone/ Acetaminophen (Percocet 5-325 Mg) 2 tab Q4H PRN PO; Start 10/22/16 at 12:30 Pantoprazole Sodium (Protonix) 40 mg DAILY@06 PO Last administered on 10/22/16 05:56; Admin Dose 40 MG; Start 10/22/16 at 06:00 Polyethylene Glycol (Miralax) 17 gm DAILY PO; Start 10/23/16 at 09:00 Potassium Chloride (KCl) 20 meq Q12HR PO Last administered on 10/22/16 11:50; Admin Dose 20 MEQ; Start 10/22/16 at 09:30 Sodium Biphosphate/ Sodium Phosphate (Fleets Enema (Adult)) 133 ml UNSCH PRN RECTAL; Start 10/22/16 at 09:15 Vital Signs / I&O Vital Signs Date Time Temp Pulse Resp B/P Pulse Ox O2 Delivery O2 Flow Rate FiO2 10/22/16 07:30 96 Nasal Cannula 3.00 10/22/16 03:20 96 Nasal Cannula 3.00 10/22/16 03:20 83 10/22/16 03:20 98.0 87 16 113/68 96 141/58 10/22/16 03:20 83 10/21/16 23:04 87 10/21/16 23:04 98.0 87 18 108/73 94 120/58 10/21/16 23:04 94 Nasal Cannula 3.00 10/21/16 23:04 87 10/21/16 20:06 97 Nasal Cannula 2.00 10/21/16 19:17 96 Nasal Cannula 3.00 10/21/16 19:17 78 10/21/16 19:17 98.1 78 19 93/55 96 97/60 10/21/16 19:00 78 10/21/16 16:15 97 Nasal Cannula 3 10/21/16 16:15 97 Nasal Cannula 3.00 10/21/16 16:00 60 10/21/16 15:50 94 40 10/21/16 15:42 79 10/21/16 15:34 95 50 10/21/16 15:31 50 10/21/16 15:29 97.8 79 10 84/49 96 82/55 10/21/16 15:27 79 10/21/16 15:26 96 Mechanical Ventilator 60 10/21/16 14:00 98.6 I/O 10/21/16 10/21/16 10/21/16 10/22/16 10/22/16 10/22/16 07:00 15:00 23:00 07:00 15:00 23:00 Intake Total 480 ml 2800 ml 1567 ml Output Total 300 ml 1275 ml 1065 ml Balance 180 ml 1525 ml 502 ml Intake Oral 480 ml 0 ml 240 ml IV Total 0 ml 2800 ml 1327 ml Output Urine Total 300 ml 875 ml 825 ml Chest Tube Drainage Total 240 ml Drainage Total 400 ml # Bowel Movements 0 Physical Exam GENERAL: SKIN: Warm and dry. HEAD: Normocephalic. EYES: No scleral icterus. No injection or drainage. NECK: Supple, trachea midline. No JVD or lymphadenopathy. CARDIOVASCULAR: Regular rate and rhythm without murmurs, gallops, or rubs. RESPIRATORY: Breath sounds equal bilaterally. No accessory muscle use. GASTROINTESTINAL: Abdomen soft, non-tender, nondistended. MUSCULOSKELETAL: No cyanosis, or edema. BACK: Nontender without obvious deformity. No CVA tenderness. Laboratory Laboratory Tests Test 10/22/16 04:35 White Blood Count 11.0 TH/MM3 Red Blood Count 4.29 MIL/MM3 Hemoglobin 11.8 GM/DL Hematocrit 35.6 % Mean Corpuscular Volume 83.0 FL Mean Corpuscular Hemoglobin 27.5 PG Mean Corpuscular Hemoglobin 33.1 % Concent Red Cell Distribution Width 14.3 % Platelet Count 157 TH/MM3 Mean Platelet Volume 7.6 FL Neutrophils (%) (Auto) 80.9 % Lymphocytes (%) (Auto) 13.0 % Monocytes (%) (Auto) 6.1 % Eosinophils (%) (Auto) 0.0 % Basophils (%) (Auto) 0.0 % Neutrophils # (Auto) 8.9 TH/MM3 Lymphocytes # (Auto) 1.4 TH/MM3 Monocytes # (Auto) 0.7 TH/MM3 Eosinophils # (Auto) 0.0 TH/MM3 Basophils # (Auto) 0.0 TH/MM3 CBC Comment DIFF FINAL Differential Comment Sodium Level 139 MEQ/L Potassium Level 4.2 MEQ/L Chloride Level 107 MEQ/L Carbon Dioxide Level 22.2 MEQ/L Anion Gap 10 MEQ/L Blood Urea Nitrogen 14 MG/DL Creatinine 1.10 MG/DL Estimat Glomerular Filtration 79 ML/MIN Rate Random Glucose 100 MG/DL Calcium Level 8.5 MG/DL Magnesium Level 2.1 MG/DL Imaging Last Impressions Chest X-Ray 10/22/16 0500 Signed Impressions: Service Date/Time: Saturday, October 22, 2016 04:04 - CONCLUSION: Minimal bibasilar atelectasis. No pneumothoraces. Rajendra Cary Jr., MD Lower Extremity Ultrasound 10/20/16 0000 Signed Impressions: Service Date/Time: Thursday, October 20, 2016 09:17 - CONCLUSION: Echogenic thrombus within the popliteal and peroneal vein on the right, nonocclusive, likely chronic. No evidence for DVT on the left. Marquise Ahuja MD Carotid Artery Ultrasound 10/20/16 0000 Signed Impressions: Service Date/Time: Thursday, October 20, 2016 09:02 - CONCLUSION: 1. No evidence for hemodynamically significant stenosis. Marquise Ahuja MD Assessment and Plan Problem List: (1) ST elevation CT (STEMI) (2) S/P CABG x 5 (3) CAD (coronary artery disease) (4) Hypertension (5) Afib (6) UTI (urinary tract infection) Assessment and Plan STEMI - multivessel CAD. CABG x 5 post op care call with further questions DC planning FU in OPD on DC Problem Qualifiers (1) ST elevation CT (STEMI): Qualified Code: I21.3 - ST elevation myocardial infarction (STEMI), unspecified artery (2) CAD (coronary artery disease): Qualified Code: I25.110 - Coronary artery disease involving [place] coronary artery of [place] heart with unstable angina pectoris Jaime Aggarwal MD Oct 22, 2016 13:06
[2016-10-22] MEDS: RESP: ALBUTEROL 2.5 MG/IPRATROPIUM 0.5 MG NEB (SCH) NEB ×2 (13:07→20:32)
--- NOTE | 2016-10-22 13:15 | HHI.PR ---
Subjective Remarks Patient laying in bed comfortably, doing well postop, denied chest pain or short of breath or fever or chills Objective Vitals Vital Signs Date Time Temp Pulse Resp B/P Pulse Ox O2 Delivery O2 Flow Rate FiO2 10/22/16 07:30 96 Nasal Cannula 3.00 10/22/16 03:20 96 Nasal Cannula 3.00 10/22/16 03:20 83 10/22/16 03:20 98.0 87 16 113/68 96 141/58 10/22/16 03:20 83 10/21/16 23:04 87 10/21/16 23:04 98.0 87 18 108/73 94 120/58 10/21/16 23:04 94 Nasal Cannula 3.00 10/21/16 23:04 87 10/21/16 20:06 97 Nasal Cannula 2.00 10/21/16 19:17 96 Nasal Cannula 3.00 10/21/16 19:17 78 10/21/16 19:17 98.1 78 19 93/55 96 97/60 10/21/16 19:00 78 10/21/16 16:15 97 Nasal Cannula 3 10/21/16 16:15 97 Nasal Cannula 3.00 10/21/16 16:00 60 10/21/16 15:50 94 40 10/21/16 15:42 79 10/21/16 15:34 95 50 10/21/16 15:31 50 10/21/16 15:29 97.8 79 10 84/49 96 82/55 10/21/16 15:27 79 10/21/16 15:26 96 Mechanical Ventilator 60 10/21/16 14:00 98.6 I/O 10/21/16 10/21/16 10/21/16 10/22/16 10/22/16 10/22/16 06:59 14:59 22:59 06:59 14:59 22:59 Intake Total 480 ml 2800 ml 1567 ml Output Total 300 ml 1275 ml 1065 ml Balance 180 ml 1525 ml 502 ml Intake Oral 480 ml 0 ml 240 ml IV Total 0 ml 2800 ml 1327 ml Output Urine Total 300 ml 875 ml 825 ml Chest Tube Drainage Total 240 ml Drainage Total 400 ml # Bowel Movements 0 Result Diagram: 10/22/1643410/22/16434 Objective Remarks GENERAL: This is a well-nourished, well-developed patient, in no apparent distress. SKIN: No rashes, warm and dry HEAD: Atraumatic. Normocephalic. EYES: Pupils equal round and reactive. Extraocular motions intact. No scleral icterus. ENT: Nose without bleeding, or drainage, Airway patent. NECK: Trachea midline. Supple CARDIOVASCULAR: Regular rate and rhythm without murmurs, gallops, or rubs. RESPIRATORY: Fair air entry bilaterally. No wheezes, rales, or rhonchi. Chest tube in subphix GASTROINTESTINAL: Abdomen soft, non-tender, nondistended. Positive bowel sounds MUSCULOSKELETAL: Extremities without clubbing, cyanosis, or edema. Pedal pulses appreciated NEUROLOGICAL: Awake and alert. Moves all extremity. Normal speech.no focal neurological deficit Procedures 10/18 cardiac catheterization: Multivessel coronary disease, recommend CABG A/P Problem List: (1) CAD (coronary artery disease) ICD Code: I25.10 Status: Acute Assessment and Plan STEMI status post heart catheter and CABG 5: Cardiology and CVS on board, aspirin beta guerda statin, aggressive pulmonary toileting, nebulizer, patient on IVs Lasix managed by CVS A. fib: Resolved on amiodarone Coronary artery disease: As above Hypertension: Controlled on medication UTI with Escherichia coli: On Ancef DVT prophylaxis with ambulation chemical to be started per CVS Problem Qualifiers (1) CAD (coronary artery disease): Qualified Code: I25.110 - Coronary artery disease involving [place] coronary artery of [place] heart with unstable angina pectoris Nito Wright MD Oct 22, 2016 13:14
[2016-10-22] MEDS: DOCUSATE SODIUM 100 MG CAP PO SCH (19:54)
[2016-10-22] MEDS: ATORVASTATIN 40 MG TAB PO SCH (19:54)
[2016-10-23] VITALS (30 sets, daily range): BP systolic 122–135; BP diastolic 60–74; PULSE 74–95; RESP 16; TEMP 98.5–100.8; O2SAT 90–97
[2016-10-23] MEDS: INSULIN ASPART SUPPLEMENTAL SCALE SQ SCH ×5 (02:00→21:00)
[2016-10-23 04:08] LABS: AUTOMATED NEUTROPHIL # 7.5 TH/MM3 (1.8-7.7); BASOPHIL % 0.4 % (0.0-2.0); EOSINOPHIL % 0.1 % (0.0-4.0); HEMATOCRIT 31.7 % (39.0-51.0); HEMO FLAGS DIFF FINAL; LYMPH % 15.5 % (9.0-44.0); LYMPHOCYTE # 1.6 TH/MM3 (1.0-4.8); MEAN CELL VOLUME 82.8 FL (80.0-100.0); MEAN CORPUSCULAR HEMOGLOBIN 27.7 PG (27.0-34.0); MEAN CORPUSCULAR HGB CONC 33.5 % (32.0-36.0); MONO % 10.7 % (0.0-8.0); NEUT % 73.3 % (16.0-70.0); PLATELET COUNT 163 TH/MM3 (150-450); RED BLOOD COUNT 3.83 MIL/MM3 (4.50-5.90); RED CELL DISTRIBUTION WIDTH 14.3 % (11.6-17.2); WHITE BLOOD COUNT 10.2 TH/MM3 (4.0-11.0)
[2016-10-23 04:27] LABS: BICARBONATE 28.9 MEQ/L (21.0-32.0); MAGNESIUM 1.9 MG/DL (1.5-2.5); POTASSIUM 4.1 MEQ/L (3.5-5.1)
[2016-10-23] MEDS: AMIODARONE 200 MG TAB PO SCH ×3 (05:45→21:49)
[2016-10-23] MEDS: PANTOPRAZOLE SOD 40 MG DELAYED RELEASE TAB PO SCH (05:45)
[2016-10-23] MEDS: POLYETHYLENE GLYCOL 17 GM PKG PO SCH (08:34)
[2016-10-23] MEDS: POTASSIUM CHLORIDE 20 MEQ CONTROLLED RELEASE TAB PO SCH (08:35)
[2016-10-23] MEDS: ASPIRIN 81 MG CHEW TAB PO SCH (08:35)
[2016-10-23] MEDS: MULTIVITAMINS/MINERALS THERAPEUTIC TAB PO SCH (08:35)
[2016-10-23] MEDS: DOCUSATE SODIUM 100 MG CAP PO SCH ×2 (08:35→21:48)
[2016-10-23] MEDS: FUROSEMIDE 40 MG/4 ML VIAL IV PUSH SCH (08:36)
[2016-10-23] MEDS: RESP: ALBUTEROL 2.5 MG/IPRATROPIUM 0.5 MG NEB (SCH) NEB ×3 (08:38→21:28)
[2016-10-23] MEDS: METOPROLOL TARTRATE 25 MG TAB PO SCH ×2 (08:41→21:49)
[2016-10-23] MEDS: SODIUM CHLORIDE 0.9% FLUSH 5 ML FLUSH IV FLUSH SCH ×2 (08:41→21:48)
[2016-10-23] MEDS ORDERED: oxyCODONE/ACETAMINOPHEN 5 MG/325 MG TAB PO PRN ×2 (08:45)
[2016-10-23] MEDS: MUPIROCIN 2% OINT 1 APPLIC/GM SYR EACH NARE SCH ×2 (09:00→21:48)
[2016-10-23] MEDS ORDERED: MISCMIS81 (10:01)
--- NOTE | 2016-10-23 10:12 | PD.CAR.PN ---
CVT Progress Note CVT: POD #: 2 Subjective/Hospital Course: 76 y/o male presented to the ED c/o substernal chest tightness radiating to both arms and back. He ruled-in for STEMI and was emergently taken to the slab tripper where he was found to have severe 3 vessel CAD. He denies prior history . EF 65% Past Medical History HTN Type 2 DM/ HGB A1C pending 10/20/16 remains pain free, on room air UA noted / will start rocephin, and repeat UA today 10/21 CABG x 5 episode of Afib in OR/ post IV amiodarone atraumatic intubation, +2500 ml crystalloids, urine -500, cellsaver 750ml required short term A pacing 10/22 extubated DOS up in chair , on nasal cannula remains in NSR + 8 kg, scheduled diuresis continue po amiodarone / start BB will transfer to stepdown 10/23 remains in NSR wean 02, low grade temp, recheck UA in am resume rocephin, will need po ABX for 5 days at discharge eval for chest tube removal today continue pulm toileting Objective: GENERAL: doing well SKIN: Warm and dry./ prevena to chest / incision intact to lower leg HEAD: Normocephalic. EYES: No scleral icterus. No injection or drainage. NECK: Supple, trachea midline. No JVD or lymphadenopathy. CARDIOVASCULAR: Regular rate and rhythm without murmurs, gallops, or rubs. mild edema RESPIRATORY: slightly diminished in bases Breath sounds equal bilaterally. No accessory muscle use. chest tube to wall suction/ no air leak GASTROINTESTINAL: Abdomen soft, non-tender, nondistended. MUSCULOSKELETAL: No cyanosis, or edema. BACK: Nontender without obvious deformity. No CVA tenderness. Vital Signs Date Time Temp Pulse Resp B/P Pulse Ox O2 Delivery O2 Flow Rate FiO2 10/23/16 09:00 86 10/23/16 08:41 94 Nasal Cannula 2.00 10/23/16 08:30 99.7 86 16 122/64 97 Arterial Line 10/23/16 08:00 84 10/23/16 07:00 82 10/23/16 06:06 81 10/23/16 05:00 80 10/23/16 04:00 80 10/23/16 03:05 Nasal Cannula 2.00 60 10/23/16 03:05 86 10/23/16 03:00 99.1 83 129/67 96 10/23/16 03:00 83 10/23/16 02:00 76 10/23/16 01:00 77 10/23/16 00:00 76 10/22/16 23:06 Nasal Cannula 2.00 10/22/16 23:06 99.0 80 123/67 98 10/22/16 23:00 80 10/22/16 23:00 86 10/22/16 22:00 82 10/22/16 21:00 86 10/22/16 20:32 98 Nasal Cannula 2.00 10/22/16 20:00 86 10/22/16 19:00 99.3 86 130/68 93 10/22/16 19:00 Nasal Cannula 2.00 10/22/16 19:00 86 10/22/16 18:04 75 10/22/16 17:00 78 10/22/16 16:40 80 10/22/16 15:30 97.9 78 17 124/67 96 10/22/16 15:00 96 Nasal Cannula 3.00 10/22/16 15:00 86 10/22/16 12:00 96 Nasal Cannula 3.00 10/22/16 12:00 97.6 77 18 120/67 96 10/22/16 11:00 85 Labs: Laboratory Tests Test 10/23/16 03:55 White Blood Count 10.2 TH/MM3 (4.0-11.0) Red Blood Count 3.83 MIL/MM3 (4.50-5.90) Hemoglobin 10.6 GM/DL (13.0-17.0) Hematocrit 31.7 % (39.0-51.0) Mean Corpuscular Volume 82.8 FL (80.0-100.0) Mean Corpuscular Hemoglobin 27.7 PG (27.0-34.0) Mean Corpuscular Hemoglobin 33.5 % Concent (32.0-36.0) Red Cell Distribution Width 14.3 % (11.6-17.2) Platelet Count 163 TH/MM3 (150-450) Mean Platelet Volume 7.1 FL (7.0-11.0) Neutrophils (%) (Auto) 73.3 % (16.0-70.0) Lymphocytes (%) (Auto) 15.5 % (9.0-44.0) Monocytes (%) (Auto) 10.7 % (0.0-8.0) Eosinophils (%) (Auto) 0.1 % (0.0-4.0) Basophils (%) (Auto) 0.4 % (0.0-2.0) Neutrophils # (Auto) 7.5 TH/MM3 (1.8-7.7) Lymphocytes # (Auto) 1.6 TH/MM3 (1.0-4.8) Monocytes # (Auto) 1.1 TH/MM3 (0-0.9) Eosinophils # (Auto) 0.0 TH/MM3 (0-0.4) Basophils # (Auto) 0.0 TH/MM3 (0-0.2) CBC Comment DIFF FINAL Differential Comment Sodium Level 139 MEQ/L (136-145) Potassium Level 4.1 MEQ/L (3.5-5.1) Chloride Level 102 MEQ/L (98-107) Carbon Dioxide Level 28.9 MEQ/L (21.0-32.0) Anion Gap 8 MEQ/L (5-15) Blood Urea Nitrogen 17 MG/DL (7-18) Creatinine 1.21 MG/DL (0.60-1.30) Estimat Glomerular Filtration 71 ML/MIN (>89) Rate Random Glucose 119 MG/DL (74-106) Calcium Level 8.3 MG/DL (8.5-10.1) Magnesium Level 1.9 MG/DL (1.5-2.5) Result Diagram: 10/23/1635410/23/16354 Telemetry: NSR (1) ST elevation MS (STEMI) Plan: ASA, statin, BB , (2) S/P CABG x 5 Plan: on ASA, BB , Statin aggressive pulm toileting nebs ezpap acapella OOB/ ambulate (3) CAD (coronary artery disease) (4) Hypertension Plan: controlled (5) Afib Plan: resolved, post IV amiodarone, now on po taper dose (6) UTI (urinary tract infection) Plan: ecoli, resume rocephin recheck UA in am Problem Qualifiers (1) ST elevation MS (STEMI): Qualified Code: I21.3 - ST elevation myocardial infarction (STEMI), unspecified artery (2) CAD (coronary artery disease): Qualified Code: I25.110 - Coronary artery disease involving [place] coronary artery of [place] heart with unstable angina pectoris Michelle Jefferson Oct 23, 2016 10:12
--- NOTE | 2016-10-23 10:30 | HHI.PR ---
Subjective Remarks Follow up status post CABG Patient sitting on chair comfortably,, denied complain no chest pain or short of breath Objective Vitals Vital Signs Date Time Temp Pulse Resp B/P Pulse Ox O2 Delivery O2 Flow Rate FiO2 10/23/16 09:00 86 10/23/16 08:41 94 Nasal Cannula 2.00 10/23/16 08:30 99.7 86 16 122/64 97 Arterial Line 10/23/16 08:00 84 10/23/16 07:00 82 10/23/16 06:06 81 10/23/16 05:00 80 10/23/16 04:00 80 10/23/16 03:05 Nasal Cannula 2.00 60 10/23/16 03:05 86 10/23/16 03:00 99.1 83 129/67 96 10/23/16 03:00 83 10/23/16 02:00 76 10/23/16 01:00 77 10/23/16 00:00 76 10/22/16 23:06 Nasal Cannula 2.00 10/22/16 23:06 99.0 80 123/67 98 10/22/16 23:00 80 10/22/16 23:00 86 10/22/16 22:00 82 10/22/16 21:00 86 10/22/16 20:32 98 Nasal Cannula 2.00 10/22/16 20:00 86 10/22/16 19:00 99.3 86 130/68 93 10/22/16 19:00 Nasal Cannula 2.00 10/22/16 19:00 86 10/22/16 18:04 75 10/22/16 17:00 78 10/22/16 16:40 80 10/22/16 15:30 97.9 78 17 124/67 96 10/22/16 15:00 96 Nasal Cannula 3.00 10/22/16 15:00 86 10/22/16 12:00 96 Nasal Cannula 3.00 10/22/16 12:00 97.6 77 18 120/67 96 10/22/16 11:00 85 I/O 10/22/16 10/22/16 10/22/16 10/23/16 10/23/16 10/23/16 06:59 14:59 22:59 06:59 14:59 22:59 Intake Total 1567 ml 240 ml Output Total 1065 ml 175 ml 1200 ml 80 ml Balance 502 ml -175 ml -960 ml -80 ml Intake Oral 240 ml 240 ml IV Total 1327 ml Output Urine Total 825 ml 175 ml 1200 ml Chest Tube Drainage Total 240 ml 80 ml # Bowel Movements 0 Result Diagram: 10/23/16 0355 10/23/16 0355 Objective Remarks GENERAL: This is a well-nourished, well-developed patient, in no apparent distress. SKIN: No rashes, warm and dry HEAD: Atraumatic. Normocephalic. EYES: Pupils equal round and reactive. Extraocular motions intact. No scleral icterus. ENT: Nose without bleeding, or drainage, Airway patent. NECK: Trachea midline. Supple CARDIOVASCULAR: Regular rate and rhythm without murmurs, gallops, or rubs. RESPIRATORY: Fair air entry bilaterally. No wheezes, rales, or rhonchi. Chest tube in subphix GASTROINTESTINAL: Abdomen soft, non-tender, nondistended. Positive bowel sounds MUSCULOSKELETAL: Extremities without clubbing, cyanosis, or edema. Pedal pulses appreciated NEUROLOGICAL: Awake and alert. Moves all extremity. Normal speech.no focal neurological deficit Procedures 10/18 cardiac catheterization: Multivessel coronary disease, recommend CABG A/P Problem List: (1) CAD (coronary artery disease) ICD Code: I25.10 Status: Acute Assessment and Plan STEMI status post heart catheter and CABG 5: Cardiology and CVS on board, aspirin beta guerda statin, aggressive pulmonary toileting, nebulizer, patient on IVs Lasix managed by [facility] A. fib: Resolved on amiodarone iv then by mouth Coronary artery disease: As above Hypertension: Controlled on medication UTI with Escherichia coli: On Ancef DVT prophylaxis with ambulation chemical to be started per CVS 10/22/16: Continue current care, chest tube in place, CVS following, on amiodarone by mouth Problem Qualifiers (1) CAD (coronary artery disease): Qualified Code: I25.110 - Coronary artery disease involving [place] coronary artery of [place] heart with unstable angina pectoris Nito Wright MD Oct 23, 2016 10:30
[2016-10-23] MEDS ORDERED: MAGNESIUM SULFATE 1 GM PREMIX 100 ML IV ONE (11:15)
[2016-10-23] MEDS: cefTRIAXone INJ 1,000 MG in SODIUM CHLORIDE 0.9% INJ 100 ML IV SCH (11:31)
--- NOTE | 2016-10-23 11:37 | HHI.FF ---
Face to Face Verification Diagnosis: (1) Chest pain (2) Hypertension (3) CAD (coronary artery disease) (4) ST elevation [place] (STEMI) (5) Afib (6) UTI (urinary tract infection) (7) S/P CABG x 5 Physical Therapy Order: Evaluate and Treat Home Health Nursing Order: Signs/symptoms of disease process Wound care and dressing changes Nursing assessment with vital signs Instructions: Heart and Vascular Surgery patients *Special attention to sternal dressing Mandatory frequency Assess and evaluation, 4 days in a row The next week 3X week 2 times a week for 4 weeks 1 time a week for 5 weeks Schedule Heart and Vascular patients for full 60 day certification period Initial visit Review Open Heart Surgery Discharge Instructions (Sternal precautions, Activity, Elastic hose, Incision care, Driving, Incentive spirometry, Smoking, [place], Work and other) Need Betadine to paint incision Medication reconciliation Importance of follow up care/ check on appointments Make calendar record temperature daily When to call [facility] at Home nurse, review instructions, phone list Incentive Spirometry, demonstration Visit 1- Begin discharge instruction for patient family and/ or caregiver using teach back method- Signs and symptoms of infection Disease characteristics Medicines and side effects Foods and nutrition/ appetite Infection control/ hand washing/ hygiene Visit 2- Continue teaching Discharge instructions- include additional information on smoking cessation , sternal dressing (sternal vac) Visit 3- Continue teaching- Cough and deep breathing, incision monitoring. Choose my plate Visit 4- Continue teaching- Discuss limitations Discuss how they are feeling Discuss progress toward goals Remaining visits- continue teaching and monitoring Incentive spirometry Q1 hr x 10, while awake, also use acapella device hourly whole awake Sternal Breast Bone Precautions: NO pushing or pulling, ( pt must use sternal pillow to support chest with all activities and with coughing ( takes up to 3 months breast bone to heal ) Daily incision care: ok to shower daily, no tub bath. Wash all incisions with liquid dial soap, clean wash cloth to each site, rinse and pat dry. Observe for any signs of infection, such as drainage which is dark yellow, [place], green or foul smelling. Immediately report to the surgeon any drainage from the chest incision, or legs, and for any abnormal drainage from the chest tube sites. Notify surgeon if any temp >101.5 degrees F. When specialty dressing removed/ or if you do not have one, continue to shower daily as above, then rinse and pat incision dry and paint with betadine daily x 5 days. Allow steri strips to fall off if you have any. Avoid lotions, creams, salves, oils, etc. for the first month For Dr. Akbar patients , please obtain CBC, BMP, PA & Lat CXR in 2 weeks, results to Dr. Akbar ( prescription will be given) ( ) (Tele: [phone]) , F/U appointment: as per DC instructions: PCP in 2 weeks, CV surgeon at 2 & 4 weeks, Sample Builder 3-4 weeks For any questions - Cardiac Intermediate Care Unit Charge Nurse, - Angeles Sal, RN, BSN, Patient Navigator, - [facility] (Dr. Kruse & Dr. Akbar), I have seen patient Martín Lares, ISAIAS on 10/23/16. My clinical findings support the need for the requested home health care services because: Patient has SOB Deconditioned w/ increased weakness I certify that my clinical findings support that this patient is homebound because: Post-op weakness Michelle Jefferson Oct 23, 2016 11:36
[2016-10-23] MEDS ORDERED: AMIODARONE 200 MG TAB PO SCH (21:00)
[2016-10-23] MEDS: ATORVASTATIN 40 MG TAB PO SCH (21:48)
[2016-10-24] VITALS (28 sets, daily range): BP systolic 106–145; BP diastolic 59–74; PULSE 70–90; RESP 16–20; TEMP 97.9–99.6; O2SAT 92–97
[2016-10-24 01:49] LABS: BLOOD, URINE SMALL (NEG); COMMENT (UR) CULT NOT INDICATED; CULTURE IF INDICATED CULT NOT INDICATED; GLUCOSE,URINE NEG (NEG); KETONE, URINE TRACE mg/dL (NEG); MUCUS URINE FEW /lpf (OCC); NITRITE,URINE NEG (NEG); URINE COLOR YELLOW (YELLW/STRAW)
[2016-10-24 05:20] LABS: HEMATOCRIT 29.7 % (39.0-51.0); MEAN CELL VOLUME 83.2 FL (80.0-100.0); MEAN CORPUSCULAR HEMOGLOBIN 27.8 PG (27.0-34.0); MEAN CORPUSCULAR HGB CONC 33.4 % (32.0-36.0); PLATELET COUNT 151 TH/MM3 (150-450); RED BLOOD COUNT 3.57 MIL/MM3 (4.50-5.90); RED CELL DISTRIBUTION WIDTH 14.5 % (11.6-17.2); REVIEW FLAG FINAL; WHITE BLOOD COUNT 8.9 TH/MM3 (4.0-11.0)
[2016-10-24] MEDS: INSULIN ASPART SUPPLEMENTAL SCALE SQ SCH ×4 (06:15→20:32)
[2016-10-24] MEDS: PANTOPRAZOLE SOD 40 MG DELAYED RELEASE TAB PO SCH (06:15)
[2016-10-24] MEDS: AMIODARONE 200 MG TAB PO SCH ×2 (06:15→20:28)
--- NOTE | 2016-10-24 06:15 | RADRPT ---
EXAM DATE/TIME: 10/24/2016 04:37 [place] COMPARISON: CHEST SINGLE AP, October 22, 2016, 4:04. INDICATIONS : Status post chest tube removal. MEDICAL HISTORY : Hypertension. Coronary artery disease. SURGICAL HISTORY : Appendectomy. Cardiac catheterization. ENCOUNTER: Subsequent ACUITY: 1 week PAIN SCORE: 0/10 LOCATION: chest FINDINGS: Left subclavian catheter tip projects at the origin of the superior vena cava. Interval removal of l eft chest drainage tube. There is a residual dense opacity along the course of the tube. The remain benjie of the lungs are clear. No evidence of pneumothorax. The heart is upper limits size for AP port able supine film. CONCLUSION: Removal of left chest drainage tube without pneumothorax. Residual opacity along the tube track. Rajendra Hdz MD on October 24, 2016 at 6:11 Board Certified Radiologist. This report was verified electronically.
[2016-10-24] MEDS: RESP: ALBUTEROL 2.5 MG/IPRATROPIUM 0.5 MG NEB (SCH) NEB (08:31)
[2016-10-24] MEDS ORDERED: POTASSIUM CHLORIDE 20 MEQ CONTROLLED RELEASE TAB PO SCH (09:00)
[2016-10-24] MEDS ORDERED: FUROSEMIDE 40 MG/4 ML VIAL IV PUSH SCH (09:00)
[2016-10-24] MEDS: DOCUSATE SODIUM 100 MG CAP PO SCH ×2 (09:39→20:28)
[2016-10-24] MEDS: ASPIRIN 81 MG CHEW TAB PO SCH (09:39)
[2016-10-24] MEDS: cefTRIAXone INJ 1,000 MG in SODIUM CHLORIDE 0.9% INJ 100 ML IV SCH (09:39)
[2016-10-24] MEDS: MULTIVITAMINS/MINERALS THERAPEUTIC TAB PO SCH (09:40)
[2016-10-24] MEDS: METOPROLOL TARTRATE 25 MG TAB PO SCH ×2 (09:41→20:29)
[2016-10-24] MEDS: POLYETHYLENE GLYCOL 17 GM PKG PO SCH (09:47)
[2016-10-24] MEDS: SODIUM CHLORIDE 0.9% FLUSH 5 ML FLUSH IV FLUSH SCH ×2 (09:47→20:29)
[2016-10-24] MEDS ORDERED: POTASSIUM CHLORIDE 20 MEQ CONTROLLED RELEASE TAB PO ONE (11:00)
--- NOTE | 2016-10-24 14:03 | HHI.PR ---
Subjective Remarks patient 'sitting on a chair denied chest pain or short of breath afebrile doing well post CABG Objective Vitals Vital Signs Date Time Temp Pulse Resp B/P Pulse Ox O2 Delivery O2 Flow Rate FiO2 10/24/16 11:45 98.1 84 18 122/63 93 10/24/16 11:45 94 Room Air 10/24/16 11:45 84 10/24/16 08:36 93 Nasal Cannula 2.00 10/24/16 07:30 93 Room Air 10/24/16 07:30 76 10/24/16 07:30 99.0 76 18 145/74 93 10/24/16 06:00 72 10/24/16 05:00 74 10/24/16 04:00 73 10/24/16 04:00 97 Nasal Cannula 2.00 10/24/16 04:00 99.1 74 16 123/60 97 10/24/16 03:00 75 10/24/16 02:00 78 10/24/16 01:00 79 10/24/16 00:00 80 10/23/16 23:30 96 Nasal Cannula 2.00 10/23/16 23:30 98.9 83 16 132/67 96 10/23/16 23:00 83 10/23/16 22:00 88 10/23/16 22:00 100.8 10/23/16 21:28 90 10/23/16 21:00 95 10/23/16 20:00 92 Room Air 10/23/16 20:00 94 10/23/16 20:00 100.8 94 16 135/74 92 10/23/16 19:00 94 10/23/16 18:13 88 10/23/16 17:00 88 10/23/16 16:15 87 10/23/16 15:35 94 Room Air 10/23/16 15:35 99.3 85 16 129/60 94 10/23/16 15:00 87 I/O 10/23/16 10/23/16 10/23/16 10/24/16 10/24/16 10/24/16 07:00 15:00 23:00 07:00 15:00 23:00 Intake Total 240 ml 820 ml 240 ml Output Total 1280 ml 610 ml 625 ml Balance -1040 ml 210 ml -385 ml Intake Oral 240 ml 620 ml 240 ml IV Total 200 ml Output Urine Total 1200 ml 550 ml 625 ml Chest Tube Drainage Total 80 ml 60 ml # Bowel Movements 0 0 Result Diagram: 10/24/1641910/24/16419 Objective Remarks GENERAL: This is a well-nourished, well-developed patient, in no apparent distress. SKIN: No rashes, warm and dry HEAD: Atraumatic. Normocephalic. EYES: Pupils equal round and reactive. Extraocular motions intact. No scleral icterus. ENT: Nose without bleeding, or drainage, Airway patent. NECK: Trachea midline. Supple CARDIOVASCULAR: Regular rate and rhythm without murmurs, gallops, or rubs. RESPIRATORY: Fair air entry bilaterally. very minimal crackle bibasilar. Chest tube in subphix GASTROINTESTINAL: Abdomen soft, non-tender, nondistended. Positive bowel sounds MUSCULOSKELETAL: Extremities without clubbing, cyanosis, or edema. Pedal pulses appreciated NEUROLOGICAL: Awake and alert. Moves all extremity. Normal speech.no focal neurological deficit Procedures 10/18 cardiac catheterization: Multivessel coronary disease, recommend CABG A/P Problem List: (1) CAD (coronary artery disease) ICD Code: I25.10 Status: Acute Assessment and Plan STEMI status post heart catheter and CABG 5: Cardiology and CVS on board, aspirin beta guerda statin, aggressive pulmonary toileting, nebulizer, patient on IVs Lasix managed by CVS A. fib: Resolved on amiodarone iv then by mouth Coronary artery disease: As above Hypertension: Controlled on medication UTI with Escherichia coli: On Ancef DVT prophylaxis with ambulation chemical to be started per CVS 10/24/16: Continue current care, chest tube in place, CVS following, on amiodarone by mouth Problem Qualifiers (1) CAD (coronary artery disease): Qualified Code: I25.110 - Coronary artery disease involving [place] coronary artery of [place] heart with unstable angina pectoris Nito Wright MD Oct 24, 2016 14:03
--- NOTE | 2016-10-24 15:07 | PD.CAR.PN ---
CVT Progress Note CVT: POD #: 3 Subjective/Hospital Course: 76 y/o male presented to the ED c/o substernal chest tightness radiating to both arms and back. He ruled-in for STEMI and was emergently taken to the clinical lab assistant where he was found to have severe 3 vessel CAD. He denies prior history . EF 65% Past Medical History HTN Type 2 DM/ HGB A1C pending 10/20/16 remains pain free, on room air UA noted / will start rocephin, and repeat UA today 10/21 CABG x 5 episode of Afib in OR/ post IV amiodarone atraumatic intubation, +2500 ml crystalloids, urine -500, cellsaver 750ml required short term A pacing 10/22 extubated DOS up in chair , on nasal cannula remains in NSR + 8 kg, scheduled diuresis continue po amiodarone / start BB will transfer to stepdown 10/23 remains in NSR wean 02, low grade temp, recheck UA in am resume rocephin, will need po ABX for 5 days at discharge eval for chest tube removal today continue pulm toileting 10/24 CXR noted, no pTX, continue aggressive pulm toileting possible dc in am additional GI motility meds given remains in NSR RX bactrim x 3 days at home Objective: GENERAL: SKIN: Warm and dry./ prevena dressing to chest HEAD: Normocephalic. EYES: No scleral icterus. No injection or drainage. NECK: Supple, trachea midline. No JVD or lymphadenopathy. CARDIOVASCULAR: Regular rate and rhythm without murmurs, gallops, or rubs. RESPIRATORY: Breath sounds equal bilaterally. No accessory muscle use. GASTROINTESTINAL: Abdomen soft, non-tender, nondistended. MUSCULOSKELETAL: No cyanosis, or edema. BACK: Nontender without obvious deformity. No CVA tenderness. Vital Signs Date Time Temp Pulse Resp B/P Pulse Ox O2 Delivery O2 Flow Rate FiO2 10/24/16 11:45 98.1 84 18 122/63 93 10/24/16 11:45 94 Room Air 10/24/16 11:45 84 10/24/16 08:36 93 Nasal Cannula 2.00 10/24/16 07:30 93 Room Air 10/24/16 07:30 76 10/24/16 07:30 99.0 76 18 145/74 93 10/24/16 06:00 72 10/24/16 05:00 74 10/24/16 04:00 73 10/24/16 04:00 97 Nasal Cannula 2.00 10/24/16 04:00 99.1 74 16 123/60 97 10/24/16 03:00 75 10/24/16 02:00 78 10/24/16 01:00 79 10/24/16 00:00 80 10/23/16 23:30 96 Nasal Cannula 2.00 10/23/16 23:30 98.9 83 16 132/67 96 10/23/16 23:00 83 10/23/16 22:00 88 10/23/16 22:00 100.8 10/23/16 21:28 90 10/23/16 21:00 95 10/23/16 20:00 92 Room Air 10/23/16 20:00 94 10/23/16 20:00 100.8 94 16 135/74 92 10/23/16 19:00 94 10/23/16 18:13 88 10/23/16 17:00 88 10/23/16 16:15 87 10/23/16 15:35 94 Room Air 10/23/16 15:35 99.3 85 16 129/60 94 Labs: Laboratory Tests Test 10/24/16 04:20 White Blood Count 8.9 TH/MM3 (4.0-11.0) Red Blood Count 3.57 MIL/MM3 (4.50-5.90) Hemoglobin 9.9 GM/DL (13.0-17.0) Hematocrit 29.7 % (39.0-51.0) Mean Corpuscular Volume 83.2 FL (80.0-100.0) Mean Corpuscular Hemoglobin 27.8 PG (27.0-34.0) Mean Corpuscular Hemoglobin 33.4 % Concent (32.0-36.0) Red Cell Distribution Width 14.5 % (11.6-17.2) Platelet Count 151 TH/MM3 (150-450) Mean Platelet Volume 7.8 FL (7.0-11.0) Sodium Level 139 MEQ/L (136-145) Potassium Level 4.0 MEQ/L (3.5-5.1) Chloride Level 102 MEQ/L (98-107) Carbon Dioxide Level 30.0 MEQ/L (21.0-32.0) Anion Gap 7 MEQ/L (5-15) Blood Urea Nitrogen 14 MG/DL (7-18) Creatinine 1.19 MG/DL (0.60-1.30) Estimat Glomerular Filtration 72 ML/MIN (>89) Rate Random Glucose 112 MG/DL (74-106) Calcium Level 8.2 MG/DL (8.5-10.1) Result Diagram: 10/24/1641910/24/16419 Telemetry: NSR (1) ST elevation [place] (STEMI) Plan: ASA, statin, BB , (2) S/P CABG x 5 Plan: on ASA, BB , Statin aggressive pulm toileting nebs ezpap acapella OOB/ ambulate (3) CAD (coronary artery disease) (4) Hypertension Plan: controlled (5) Afib Plan: resolved, post IV amiodarone, now on po taper dose (6) UTI (urinary tract infection) Plan: ecoli, repeat UA improved will add 3 days po bactrim at home at ms Problem Qualifiers (1) ST elevation [place] (STEMI): Qualified Code: I21.3 - ST elevation myocardial infarction (STEMI), unspecified artery (2) CAD (coronary artery disease): Qualified Code: I25.110 - Coronary artery disease involving [place] coronary artery of [place] heart with unstable angina pectoris Michelle Jefferson Oct 24, 2016 15:07
[2016-10-24] MEDS ORDERED: THERM PO (15:12)
[2016-10-24] MEDS ORDERED: Aspirin Chew PO (15:12)
[2016-10-24] MEDS ORDERED: DOCU1CAP39 PO (15:12)
[2016-10-24] MEDS ORDERED: METO25TA3 PO (15:12)
[2016-10-24] MEDS ORDERED: LIPI40TA PO (15:12)
[2016-10-24] MEDS ORDERED: BACT800T5 PO (15:12)
[2016-10-24] MEDS ORDERED: AMIO200T PO (15:12)
[2016-10-24] MEDS: ATORVASTATIN 40 MG TAB PO SCH (20:29)
[2016-10-24] MEDS: SULFAMETHOXAZOLE-TRIMETHOPRIM DS 800-160 MG TAB PO SCH (20:29)
[2016-10-25] VITALS (16 sets, daily range): BP systolic 125–167; BP diastolic 77–84; PULSE 70–80; RESP 18–20; TEMP 98.4–99.2; O2SAT 92–97
[2016-10-25] MEDS: PANTOPRAZOLE SOD 40 MG DELAYED RELEASE TAB PO SCH (05:41)
[2016-10-25] MEDS: INSULIN ASPART SUPPLEMENTAL SCALE SQ SCH ×2 (06:01→11:00)
[2016-10-25] MEDS ORDERED: LISI10TA3 PO (08:04)
--- NOTE | 2016-10-25 08:07 | HHI.DS ---
Discharge Summary Admission Date Oct 18, 2016 at 17:01 Discharge Date: Oct 25, 2016 Admitting Diagnosis STEMI (1) CAD (coronary artery disease) Diagnosis: Principal (2) ST elevation [place] (STEMI) Diagnosis: Principal (3) UTI (urinary tract infection) Diagnosis: Secondary (4) Diabetes mellitus Diagnosis: Secondary (5) Hypertension Diagnosis: Secondary Procedures [facility] CABG x 5 Brief History 76 y/o male presented to the ED yesterday c/o substernal chest tightness radiating to both arms and back. He ruled-in for STEMI and was emergently taken to the cardiovascular lab director where he was found to have severe 3 vessel CAD. He denies prior history and is being considered for CABG. CVT: POD #: 3 Subjective/Hospital Course: 76 y/o male presented to the ED c/o substernal chest tightness radiating to both arms and back. He ruled-in for STEMI and was emergently taken to the cardiovascular lab director where he was found to have severe 3 vessel CAD. He denies prior history . EF 65% Past Medical History HTN Type 2 DM/ HGB A1C pending CBC/BMP: 10/24/16 0420 10/24/16 0420 Significant Findings Laboratory Tests Test 10/23/16 10/24/16 10/24/16 03:55 00:50 04:20 Red Blood Count 3.83 MIL/MM3 3.57 MIL/MM3 (4.50-5.90) (4.50-5.90) Hemoglobin 10.6 GM/DL 9.9 GM/DL (13.0-17.0) (13.0-17.0) Hematocrit 31.7 % 29.7 % (39.0-51.0) (39.0-51.0) Neutrophils (%) (Auto) 73.3 % (16.0-70.0) Monocytes (%) (Auto) 10.7 % (0.0-8.0) Monocytes # (Auto) 1.1 TH/MM3 (0-0.9) Estimat Glomerular Filtration 71 ML/MIN (>89) 72 ML/MIN (>89) Rate Random Glucose 119 MG/DL 112 MG/DL (74-106) (74-106) Calcium Level 8.3 MG/DL 8.2 MG/DL (8.5-10.1) (8.5-10.1) Urine Ketones TRACE mg/dL (NEG) Urine Occult Blood SMALL (NEG) Urine RBC 9 /hpf (0-3) Urine Mucus FEW /lpf (OCC) Imaging Last Impressions Chest X-Ray 10/24/16 0600 Signed Impressions: Service Date/Time: Monday, October 24, 2016 04:37 - CONCLUSION: Removal of left chest drainage tube without pneumothorax. Residual opacity along the tube track. 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 No evidence for DVT on the left. Marquise Ahuja MD Carotid Artery Ultrasound 10/20/16 0000 Signed Impressions: Service Date/Time: Thursday, October 20, 2016 09:02 - CONCLUSION: 1. No evidence for hemodynamically significant stenosis. Marquise Ahuja MD PE at Discharge Chest - CTA COR - RRR ABD - soft, NT wound - dry and intact Hospital Course 10/20/16 remains pain free, on room air UA noted / will start rocephin, and repeat UA today 10/21 CABG x 5 episode of Afib in OR/ post IV amiodarone atraumatic intubation, +2500 ml crystalloids, urine -500, cellsaver 750ml required short term A pacing 10/22 extubated DOS up in chair , on nasal cannula remains in NSR + 8 kg, scheduled diuresis continue po amiodarone / start BB will transfer to stepdown 10/23 remains in NSR wean 02, low grade temp, recheck UA in am resume rocephin, will need po ABX for 5 days at discharge eval for chest tube removal today continue pulm toileting 10/24 CXR noted, no pTX, continue aggressive pulm toileting possible dc in am additional GI motility meds given remains in NSR RX bactrim x 3 days at home Pt Condition on Discharge: Good Discharge Disposition: Disch w/ Home Health Serv Discharge Instructions DIET: Follow Instructions for: Heart Healthy Diet Activities you can perform: Weight Bearing as Crystal, Shower Only-No Bath Activities to avoid: Lifting/Bending, Driving Follow up Referrals: Cardiology PCP Follow-up - [address] Simons Surgical - 4 Weeks with Ayana Akbar MD Surgical - 11/06/16 with Ayana Akbar MD New Orders: BASIC METABOLIC PROF - 2 Weeks CBC NO DIFF - 2 Weeks X-RAY CHEST PA & LAT - 2 Weeks New Medications: Rollator Ultra-Light (Rollator Ultra-Light) 1 Mis Mis 1 EA .ROUTE DIRECTED #1 EA Amiodarone (Amiodarone) 200 Mg Tab 200 MG PO Q12HR heart rhythm #28 TAB Atorvastatin (Lipitor) 40 Mg Tab 40 MG PO HS Cholesterol Management #30 Ref 2 TAB Docusate Sodium (Dok) 100 Mg Cap 100 MG PO BID Constipation #60 CAP Lisinopril (Lisinopril) 10 Mg Tab 10 MG PO DAILY Blood Pressure Management #30 Ref 3 TAB Metoprolol Tartrate (Metoprolol Tartrate) 25 Mg Tab 25 MG PO BID Blood Pressure Management #60 Ref 2 TAB Multiple Vitamins W/ Minerals (Thera M Plus) 1 Tab 1 TAB PO DAILY multi vitamin #30 TAB Sulfamethoxazole-Trimethoprim (Bactrim DS) 800-160 Mg Tab 1 TAB PO Q12HR uti #6 TAB ([Aspirin Chew]) 81 MG CHEW 81 MG PO DAILY #100 Ref 2 TAB.CHEW Ayana Akbar MD Oct 25, 2016 08:07
[2016-10-25] MEDS ORDERED: LISINOPRIL 10 MG TAB PO SCH (09:00)
[2016-10-25] MEDS: POLYETHYLENE GLYCOL 17 GM PKG PO SCH (09:48)
[2016-10-25] MEDS: AMIODARONE 200 MG TAB PO SCH (09:48)
[2016-10-25] MEDS: METOPROLOL TARTRATE 25 MG TAB PO SCH (09:48)
[2016-10-25] MEDS: DOCUSATE SODIUM 100 MG CAP PO SCH (09:48)
[2016-10-25] MEDS: ASPIRIN 81 MG CHEW TAB PO SCH (09:48)
[2016-10-25] MEDS: SODIUM CHLORIDE 0.9% FLUSH 5 ML FLUSH IV FLUSH SCH (09:49)
[2016-10-25] MEDS: MULTIVITAMINS/MINERALS THERAPEUTIC TAB PO SCH (09:49)
[2016-10-25] MEDS: SULFAMETHOXAZOLE-TRIMETHOPRIM DS 800-160 MG TAB PO SCH (11:58)
--- NOTE | 2016-10-25 23:35 | HHI.PR ---
Subjective Remarks Patient doing very well post CABG He was cleared by CVS be discharged home Afebrile no chest pain no short of breath, will be following up with cardiology and cardio vascular surgeon as an patient Objective Vitals Vital Signs Date Time Temp Pulse Resp B/P Pulse Ox O2 Delivery O2 Flow Rate FiO2 10/25/16 13:25 70 10/25/16 11:34 97 Room Air 10/25/16 11:34 98.4 75 18 125/77 97 10/25/16 11:00 72 10/25/16 10:00 71 10/25/16 09:00 73 10/25/16 08:37 97 21 10/25/16 08:00 80 10/25/16 07:00 78 10/25/16 07:00 98.7 80 18 167/84 94 10/25/16 07:00 94 Room Air 10/25/16 06:00 70 10/25/16 05:00 73 10/25/16 04:00 75 10/25/16 03:56 99.2 74 20 131/77 92 10/25/16 03:55 Room Air 10/25/16 03:00 75 10/25/16 02:00 70 10/25/16 01:00 70 10/25/16 00:00 72 I/O 10/24/16 10/24/16 10/24/16 10/25/16 10/25/16 10/25/16 07:00 15:00 23:00 07:00 15:00 23:00 Intake Total 240 ml 800 ml 480 ml Output Total 625 ml 900 ml 725 ml Balance -385 ml -100 ml -245 ml Intake Oral 240 ml 800 ml 480 ml IV Total 0 ml Output Urine Total 625 ml 900 ml 725 ml Emesis 0 ml # Bowel Movements 0 1 0 Result Diagram: 10/24/16 0420 10/24/16 0420 Objective Remarks GENERAL: This is a well-nourished, well-developed patient, in no apparent distress. SKIN: No rashes, warm and dry HEAD: Atraumatic. Normocephalic. EYES: Pupils equal round and reactive. Extraocular motions intact. No scleral icterus. ENT: Nose without bleeding, or drainage, Airway patent. NECK: Trachea midline. Supple CARDIOVASCULAR: Regular rate and rhythm without murmurs, gallops, or rubs. RESPIRATORY: Fair air entry bilaterally. very minimal crackle bibasilar. Chest tube in subphix GASTROINTESTINAL: Abdomen soft, non-tender, nondistended. Positive bowel sounds MUSCULOSKELETAL: Extremities without clubbing, cyanosis, or edema. Pedal pulses appreciated NEUROLOGICAL: Awake and alert. Moves all extremity. Normal speech.no focal neurological deficit Procedures 10/18 cardiac catheterization: Multivessel coronary disease, recommend CABG A/P Problem List: (1) CAD (coronary artery disease) ICD Code: I25.10 Status: Acute (2) ST elevation [place] (STEMI) ICD Code: I21.3 Status: Acute (3) UTI (urinary tract infection) ICD Code: N39.0 Status: Acute (4) Diabetes mellitus ICD Code: E11.9 Status: Acute (5) Hypertension ICD Code: I10 Status: Acute Assessment and Plan STEMI status post heart catheter and CABG 5: Cardiology and CVS on board, aspirin beta guerda statin, aggressive pulmonary toileting, nebulizer, patient on IVs Lasix managed by CVS A. fib: Resolved on amiodarone iv then by mouth Coronary artery disease: As above Hypertension: Controlled on medication UTI with Escherichia coli: On Ancef DVT prophylaxis with ambulation chemical to be started per CVS 10/25/16: Stable post CABG, no acute issue, no chest pain or short of breath, Continue current care, medically stable for discharge per CVS Problem Qualifiers (1) CAD (coronary artery disease): Qualified Code: I25.110 - Coronary artery disease involving [place] coronary artery of [place] heart with unstable angina pectoris (2) ST elevation [place] (STEMI): Qualified Code: I21.3 - ST elevation myocardial infarction (STEMI), unspecified artery Nito Wright MD Oct 25, 2016 23:35
== END 2016-10-25 14:49 | disposition home health service (06) | DRG 234 ==
LOC: NEPE 16:48 → NEDA 17:01 → HCIS 17:59 → HCVR 10-21 11:55 → HCIN 10-22 15:27
PROVIDERS: ADMIT Hospitalist; ATTEND Hospitalist
PROC: B2151ZZ Fluoroscopy of Left Heart using Low Osmolar Contrast (ICD-10-PCS; 2016-10-18)
PROC: 4A023N7 Measurement of Cardiac Sampling and Pressure, Left Heart, Percutaneous Approach (ICD-10-PCS; 2016-10-18)
PROC: B2111ZZ Fluoroscopy of Multiple Coronary Arteries using Low Osmolar Contrast (ICD-10-PCS; 2016-10-18)
PROC: 3E033GC Introduction of Other Therapeutic Substance into Peripheral Vein, Percutaneous Approach (ICD-10-PCS; 2016-10-18)
PROC: 021309W Bypass Coronary Artery, Four or More Arteries from Aorta with Autologous Venous Tissue, Open Approach (ICD-10-PCS; 2016-10-21)
PROC: 05B Upper Veins, Excision (ICD-10-PCS; 2016-10-21)
PROC: 5A1221Z Performance of Cardiac Output, Continuous (ICD-10-PCS; 2016-10-21)
PROC: 02100Z9 Bypass Coronary Artery, One Artery from Left Internal Mammary, Open Approach (ICD-10-PCS; principal; 2016-10-21 07:00)
DX: I21.3 ST elevation (STEMI) myocardial infarction of unspecified site (principal); I25.110 Atherosclerotic heart disease of native coronary artery with unstable angina pectoris; N39.0 Urinary tract infection, site not specified; I48.91 Unspecified atrial fibrillation; E11.9 Type 2 diabetes mellitus without complications; I10 Essential (primary) hypertension; Z66 Do not resuscitate; B96.20 Unspecified Escherichia coli [E. coli] as the cause of diseases classified elsewhere
CPT/HCPCS: 71010; 76937; 80048; 80061; 81001; 82310; 82435; 82550; 82552; 82565; 82805; 82947; 82948; 83036; 83735; 83880; 84132; 84295; 84484; 84520; 85014; 85025; 85027; 85610; 85730; 86850; 86900; 86901; 86920; 87077; 87086; 87186; 87641; 93005; 93306; 93318; 93458; 93880; 93970; 93998; 94002; 94010; 94150; 94640; 94664; 94667; 94668; C1769; C1887; C1893; C9399; J0131; J0282; J0360; J0690; J0696; J1265; J1644; J1815; J1940; J2150; J2250; J2370; J2440; J2720; J2765; J2930; J3010; J3370; J3475; J3480; J7030; J7040; J7050; J7120; P9047; Q9967